=== PATIENT | male | born 1965 | race Caucasian/White ===

== ENCOUNTER 2018-07-05 08:34 | Inpatient (IN) ==
[2018-07-05] MEDS ORDERED: ONDANSETRON 4 MG/2 ML VIAL IV ONE (16:55)
[2018-07-05] MEDS ORDERED: PROPOFOL 200 MG/20 ML VIAL IV ONE (16:55)
[2018-07-05] MEDS ORDERED: MIDAZOLAM 5 MG/5 ML VIAL IV ONE (16:55)
[2018-07-05] MEDS ORDERED: fentaNYL 100 MCG/2 ML VIAL IV ONE (16:55)
[2018-07-05] MEDS ORDERED: TRANEXAMIC ACID 1,000 MG/10 ML VIAL IV ONE (16:55)
[2018-07-05] MEDS ORDERED: VERAPAMIL 2.5 MG/ML VIAL IV ONE (16:55)
[2018-07-05] MEDS ORDERED: VANCOMYCIN PER PHARMACY IV ONE (17:23)
[2018-07-05] MEDS ORDERED: VANCOMYCIN 1,500 MG in 0.9 % SODIUM CHLORIDE 500 ML IV SCH (17:30)
--- NOTE | 2018-07-05 17:57 | Brief Operative Note ---
Date of procedure: 07/05/18 Pre-op diagnosis: SEPTIC ARTHRITIS FIRST TOE ip JOINT RIGHT Post-op diagnosis: same Procedure: AMPUTATION , BONE BX Grafts/Implants: No Anesthesia: local Findings: SEVERE INFECTION Complications: none Surgeon: Seamus Small Estimated blood loss (cc): 100 Tourniquet Time (Minutes): 15 Specimens Removed/Pathology: other (SUPERFICIAL CULTURE; BIOPSY AND CULTURE OF BONE PROXIMAL TO AMPUTATION) Condition: stable Disposition: floor
[2018-07-05] MEDS ORDERED: BENZOCAINE/MENTHOL 1 LOZENGE PO PRN (17:58)
[2018-07-05] MEDS ORDERED: ONDANSETRON 4 MG/2 ML VIAL IV PRN (17:58)
[2018-07-05] MEDS ORDERED: MAGNESIUM HYDROXIDE 30 ML ORAL.SUSP PO PRN (17:58)
[2018-07-05] MEDS ORDERED: FLEETS ADULT ENEMA PR PRN (17:58)
[2018-07-05] MEDS ORDERED: BISACODYL 10 MG SUPP.RECT PR PRN (17:58)
[2018-07-05] MEDS ORDERED: LIDOCAINE 1% 20 ML VIAL SQ ONE (18:05)
[2018-07-05] MEDS ORDERED: BUPIVACAINE 0.5% 50 ML VIAL IJ ONE (18:06)
[2018-07-05] MEDS: DEXTROSE 5%-1/2NS 1,000 ML IV SCH (18:23)
[2018-07-05] MEDS: PIPERACILLIN SODIUM/TAZOBACTAM 3.375 GM in DEXTROSE 5% IN WATER 50 ML IV SCH (18:23)
--- NOTE | 2018-07-05 18:35 | History and Physical Report ---
DATE OF ADMISSION: 07/05/2018 HISTORY OF PRESENT ILLNESS: This is a 53-year-old who came from Dr. Sinha in [place] and who lives in [place]. He has had problems with his right big toe for at least a week. He has had swelling and pain and drainage from the toe. He has had a problem in this area previously. He does not have a history of diabetes, but does have a history of alcohol use, tobacco, peripheral neuropathy. He chews tobacco, but does not smoke. He has been worked up with an MRI of his foot recently, which shows a septic joint at the IP level of the right big toe. PAST MEDICAL HISTORY: Osteomyelitis, alcoholism. MEDICATIONS: Ciprofloxacin, hydrochlorothiazide, nifedipine, omeprazole, Percocet. SMOKING: He chews. Alcohol: History of alcohol use and abuse. SOCIAL HISTORY: He is not working. Recreational drugs. Has a history of methamphetamine use. PHYSICAL EXAMINATION: General: He is awake, alert, pleasant and in no distress. Lungs: Clear. Coronary: Regular rate and rhythm. No murmurs, rubs, or gallops. Foot exam shows a strong dorsalis pedis pulse. His big toe was swollen, especially through the IP joint to at least 2 times normal with a mild flexion deformity and ascending redness. Capillary refill is less than 2 seconds. His foot is a blotchy above the right toe. MR report of the right big toe is as noted above. I think the patient has a septic IP joint of the big toe. I have recommended amputation at the level of the infection and I would leave about 1 cm of the proximal phalanx to give him as much balance and length as possible. He knows the infection can get out of control and need a higher amputation. He will also have to be compliant in order to get a good result. Dr. Presley' briefly looked to the patient as well as we might need a wound care consult in 2 days, if he is showing necrosis at the site of surgery. We will proceed with emergent surgery in the next hour or 2. TJF:poonam Job ID: [id number] Doc ID: [id number] Seamus Sinha DO
[2018-07-05] MEDS ORDERED: LORazepam 2 MG/ML VIAL IV PRN (19:54)
[2018-07-05] MEDS ORDERED: cloNIDine HCL 0.1 MG TABLET PO PRN (19:54)
--- NOTE | 2018-07-05 20:18 | Internal Med History&Physical ---
Medical - H&P: HPI Patient information: Note initiated : 07/05/18 at 8:09 pm Service Date, if different from initiated Date: [] Patient: Vaughn Jolly a 53 y/o M admitted on 07/05/18 for Cellulitis, Osteomyelitis. Chief Complaint: [] History of present illness: Mr. Jolly is a 53 year old M with h/o etoh use, neuropathy, presents to the hospital from outside hospital with cellulitis and osteomyelitis of the right toe. The patient presented to the outside facility and 03 July. The patient's initial complaints were 5-day pain swelling and redness on the right toe. The patient notes that he does not remember how the episode started, does have poor sensation in his feet, thinks something may have bitten him. Pain and redness started progressively got worse over the last 5 days eventually presented to the hospital. He had erythema extending up to his mid leg. The patient was admitted at outside facility for 2 days treated with IV antibiotics vancomycin and Zosyn for cellulitis and sepsis. According to the discharge summary there it seems that the patient had an MRI done which showed that the patient had osteo-mellitus of the first toe. The patient also had blood cultures positive with staph aureus which is methicillin-resistant. The patient had an echocardiogram done at the outside facility results of which are still pending. The patient was transferred here for evaluation and amputation. Patient was seen by Dr. Small today amputation done successfully. Given that the patient has very high blood pressures, history of alcohol use medicine was consulted for further management. Infectious disease consulted for management of antibiotics. Patient has a history of hypertension, that has been uncontrolled. He has had admissions in the hospital in the past for hypertensive encephalopathy. The patient takes blood pressure pills I believe nifedipine lisinopril and hydrochlorothiazide, has not been compliant with same for the last few weeks. He drinks alcohol, sixpacks a day, 16 ounces. He denies any history of alcohol withdrawal when he does not drink, he denies any alcohol withdrawal seizures. The patient admits to chew tobacco, has a history of remote use of methamphetamine. Denies any other acute complaints. The patient admits to intermittent dizziness for not eating well, feels hungry and has some depression. All systems: reviewed and no additional remarkable complaints except as stated ( as per HPI rest neg) Medical - H&P: PMH Medical history: ALcoholism Neuropathy Osteomyelitis Diastoilc dysfunction, LVH Alcoholism Surgical history: left 4th toe amputation Pertinent family history: father and grand father has DM Social history: active tobacco user, chews tobacco h/o meth use active etoh use. Medical - H&P: Meds Home Medications Medication Instructions Recorded Confirmed Type Hydrochlorothiazide 20 mg PO DAILY 07/05/18 07/05/18 History Methadone [Dolophine] 5 mg PO BID 07/05/18 07/05/18 History NIFEdipine [Procardia] 50 mg PO DAILY 07/05/18 07/05/18 History Omeprazole [PriLOSEC] 20 mg PO DAILY 07/05/18 07/05/18 History Allergies Allergy/AdvReac Type Severity Reaction Status Date / Time Sulfa (Sulfonamide Allergy Intermediate Rash Verified 07/05/18 14:40 Antibiotics) acetaminophen AdvReac Intermediate Verified 07/05/18 15:43 ibuprofen AdvReac Intermediate Verified 07/05/18 15:43 Medical - H&P: Exam - Constitutional Vitals: Temp Pulse Resp BP Pulse Ox 98.1 F 69 16 163/101 96 07/05/18 18:05 07/05/18 18:05 07/05/18 18:05 07/05/18 18:05 07/05/18 18:31 Exam: GENERAL: The patient is a well-developed, well-nourished in no apparent distress. Is alert and oriented x3. VITAL SIGNS: Reviewed and as noted elsewhere. HEENT: Head is normocephalic and atraumatic. Extraocular muscles are intact. Pupils are equal, round, and reactive to light. Nares appeared normal. Mouth appears any without lesions. Mucous membranes are moist. NECK: Normal to inspection, Supple, No lymphadenopathy or thyromegaly. LUNGS: Air entry equal on both sides, no wheezing, crackles or rhonchi noted. No accessory muscles of respiration HEART: Regular rate and rhythm normal, S1 and S2 heard, no Gallop, S3 or Rub Noted, No Gross murmur heard. ABDOMEN: Soft, nontender, and nondistended. Positive bowel sounds. No hepatosplenomegaly was noted. EXTREMITIES: No cyanosis, clubbing, rash, lesions or edema. right foot covered in dressing post op. NEUROLOGIC: Cranial nerves II through XII are grossly intact. Motor and Sensory System Grossly Intact PSYCHIATRIC: Normal affect, Normal Mood. Appropriate Behavior. SKIN: No ulceration or wounds noted, No jaundice, No rash noted. Medical - H&P: Reslt - Labs Labs: wbc 6.7, hemoglobin 13, platelet 224, potassium 3.3, bicarb 23, creatinine 0.8 glucose 132, CRP 12. Blood cultures positive for MRSA. Echo pending at the outside facility. Sensitivity of the MRSA also pending Medical - H&P: A/P - Narrative A/P Narrative: A/P Ucontrolled HTN Osteomyelitis of right toe Cellulitis Gram positive Bactermia Alcoholism Neuropathy Plan Resume home bp medications, monitor for response, prn clonidine, pt educated regarding need to compliance. CIWA protocol, iv ativan prn, IV vanco and zosyn for now, await sensitivities, ID consult Regular diet Medical - H&P: Qual - Stroke Symptom Onset Unknown: No - VTE Deep Vein Thrombosis/Pulmonary Embolism Present on Admission: No
[2018-07-05] MEDS: LISINOPRIL 20 MG TABLET PO SCH (21:42)
[2018-07-05] MEDS: THIAMINE 100 MG TABLET PO SCH (21:42)
[2018-07-05] MEDS: oxyCODONE HCL 5 MG TABLET PO PRN (21:42)
[2018-07-05] MEDS: 0.9 % SODIUM CHLORIDE 10 ML SYRINGE IV SCH (22:52)
[2018-07-06] MEDS: PIPERACILLIN SODIUM/TAZOBACTAM 3.375 GM in DEXTROSE 5% IN WATER 50 ML IV SCH ×2 (00:52→05:24)
[2018-07-06 05:23] LABS: Basophils # (Auto) 0 K/mcL (0.0-0.3); Basophils % (Auto) 0.7 % (0.0-2.0); Eosinophils # (Auto) 0.4 K/mcL (0.0-0.7); Eosinophils % (Auto) 6.3 % (0.0-7.0); Granulocytes % (Auto) 56.6 % (38.0-78.0); Lymphocytes # (Auto) 1.9 K/mcL (1.5-4.8); Lymphocytes % (Auto) 27.1 % (15.5-49.0); Mean Cell Volume 86.3 fL (80.0-100.0); Mean Corpuscular Hemoglobin 29.3 pg (26.0-34.0); Monocytes # (Auto) 0.6 K/mcL (0.1-0.9); Monocytes % (Auto) 9.3 % (1.0-12.0); Platelet Count 238 K/mcL (140-440); RBC 4.26 M/mcL (4.50-5.90); Red Cell Distribution Width 14.4 % (11.5-14.5)
[2018-07-06] MEDS: DEXTROSE 5%-1/2NS 1,000 ML IV SCH (05:24)
[2018-07-06] MEDS: 0.9 % SODIUM CHLORIDE 10 ML SYRINGE IV SCH ×3 (05:26→21:36)
[2018-07-06 05:55] LABS: ALT/SGPT 17 U/l (0-40); Albumin 2.7 gm/dL (3.2-5.2); Albumin/Globulin Ratio 0.8 (1.0-2.3); Alkaline Phosphatase 72 U/L (39-117); Bilirubin,Direct < 0.2 mg/dL (0.0-0.3); Blood Urea Nitrogen 11 mg/dl (6-20); Gamma Glutamyl Transpeptidase 31 U/L (8-61); Uric Acid 3.2 mg/dL (2.5-8.0)
[2018-07-06] MEDS: oxyCODONE HCL 5 MG TABLET PO PRN ×4 (07:21→23:12)
[2018-07-06] MEDS: OMEPRAZOLE 20 MG CAPSULE PO SCH (07:21)
--- NOTE | 2018-07-06 07:32 | Operative Note ---
DATE OF OPERATION: 07/05/2018 PREOPERATIVE DIAGNOSIS: Septic INTRATHECAL PUMP joint of the right foot. POSTOPERATIVE DIAGNOSIS: Septic IP joint of the right foot. OPERATION: Amputation to the proximal phalanx of the right big toe. SURGEON: Seamus Small MD ANESTHESIA: Sedation with ankle block by Sharath Michelle CRNA. TOURNIQUET TIME: 15 minutes, ankle level Esmarch tourniquet. ESTIMATED BLOOD LOSS: 100 mL SUMMARY OF PROCEDURE: General anesthesia was attained. An ankle block was placed with 30 mL of Marcaine and 10 mL of 1% lidocaine. Neither had epinephrine. The foot was prepped and draped. An ankle level Esmarch tourniquet was put up. A fishmouth incision was made. This was taken down just proximal to the infection to the diaphysis of the proximal phalanx. The position for the amputation was checked on the mini C-arm and the amputation accomplished removing the infected toe and IP joints. The area was irrigated. I then took a bone biopsy from the remaining bone as well as a bone culture. I instructed Jonatan, the circulating nurse to send the culture and label it as proximal phalanx and to send a biopsy and label as proximal phalanx. Prior to doing this, we had also taken a soft tissue swab while entering the abscess. The tourniquet was let down. The digital arteries were located and coagulated with the Bovie. The remaining significant bleeders were bovied as well. I irrigated the area with a liter of IrriSept and then 10 mL of tranexamic acid which was 1 gram. The wound was closed in layers using 2-0 Monocryl for the subcutaneous tissue and simple sutures of 3-0 nylon on the skin. A sterile compressive dressing was applied. The sponge and needle count was correct. The patient tolerated the procedure and was taken to the recovery room in stable condition. TJF:amberly Job ID: [id number] Doc ID: [id number] Seamus Small MD
--- NOTE | 2018-07-06 07:51 | XRay Report ---
HISTORY: Postop after amputation of the first toe FINDINGS: The base of the proximal phalanx of the first toe remains. The remainder of the toe has been resected. There is soft tissue swelling over the stump of the residual proximal phalanx. The Remainder of the toes and metatarsals are normal. There are small spurs along the superior border of the navicular and plantar surface of the calcaneus. IMPRESSION: Normal postoperative changes following recent amputation of the first toe Interpreted and Authenticated by: José Antonio Blunt 07/06/18
[2018-07-06] MEDS ORDERED: HYDROCHLOROTHIAZIDE 25 MG TABLET PO SCH (09:00)
[2018-07-06] MEDS ORDERED: NIFEdipine 10 MG CAPSULE PO SCH (09:00)
[2018-07-06] MEDS: THIAMINE 100 MG TABLET PO SCH (09:07)
[2018-07-06] MEDS: NIFEdipine 30 MG TAB.XL.24H PO SCH (09:07)
[2018-07-06] MEDS: MULTIVIT,THER IRON,CA,FA & MIN 1 TABLET PO SCH (09:08)
[2018-07-06] MEDS: HYDROCHLOROTHIAZIDE 25 MG TABLET PO SCH (09:08)
[2018-07-06] MEDS: DOCUSATE SODIUM 100 MG CAPSULE PO SCH ×2 (09:08→21:36)
[2018-07-06] MEDS: FOLIC ACID 1 MG TABLET PO SCH (09:08)
[2018-07-06] MEDS: LISINOPRIL 20 MG TABLET PO SCH (09:08)
--- NOTE | 2018-07-06 09:22 | Infectious Disease Consult ---
History of Present Illness Patient information: Note initiated : 07/06/18 at 9:01 am Service Date, if different from initiated Date: [] Patient: Vaughn Jolly 53 y/o M admitted on 07/05/18 for Cellulitis, Osteomyelitis. Chief Complaint: [] Consult date: 07/05/18 (Late evening) Requesting Physician: Seamus Small Reason for Consult: MRSA bacteremia and right toe infection Chief complaint: My foot hurts History of present illness: 53-year-old man with past medical history pertinent for: MRSA infection of the left foot, status post fourth toe amputation in 11/2017 Alcohol use Neuropathy involving both feet [? 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 Around last Monday [06/30/2018] , patient noticed swelling and redness of his right first toe. Patient reports that it started without any trauma and was accompanied with fever and chills and overall malaise. Patient took an oral penicillin [given to him by his friend who had bought it in [place]] for next 3 days without any improvement. Patient's overall condition worsened with drainage from the foot and he reported to the hospital in [place], [place] where he was admitted for few days before being transferred to [facility] on 04 July. Patient had blood cultures, MRI of the first toe done there. Blood cultures grew MRSA although the exact number was not available in records. A transthoracic echocardiogram was also done the results of which were pending. MRI of the right first toe showed osteomyelitis and septic joint at the interphalangeal level of the first toe. Patient was started on IV vancomycin and IV Zosyn and was transferred. The Vanco level was subtherapeutic and his dose was increased Patient was afebrile at admission although his diastolic blood pressure has been running high. He underwent amputation of the bone distal to proximal phalanx with operative cultures sent from healthy bone. He has been on IV Vanco and IV Zosyn. At the time of visit today, he denies any fever, chills, nausea, vomiting, diarrhea. Endorses pain in his right toe. He does not have a PICC line placed. 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 Smokes and chews tobacco Drinks about 6 packs of beer a day History of IV meth use Medications and Allergies Home Medications Medication Instructions Recorded Confirmed Type Hydrochlorothiazide 20 mg PO DAILY 07/05/18 07/05/18 History Methadone [Dolophine] 5 mg PO BID 07/05/18 07/05/18 History NIFEdipine [Procardia] 50 mg PO DAILY 07/05/18 07/05/18 History Omeprazole [PriLOSEC] 20 mg PO DAILY 07/05/18 07/05/18 History Allergies Allergy/AdvReac Type Severity Reaction Status Date / Time Sulfa (Sulfonamide Allergy Intermediate Rash Verified 07/05/18 14:40 Antibiotics) acetaminophen AdvReac Intermediate Verified 07/05/18 15:43 ibuprofen AdvReac Intermediate Verified 07/05/18 15:43 Physical Examination Vital signs: Temp Pulse Resp BP Pulse Ox 36.6 C 70 16 144/108 93 07/06/18 07:32 07/06/18 04:00 07/06/18 07:32 07/06/18 07:32 07/06/18 07:32 General appearance: no acute distress, alert Eyes pulmonary: nonicteric ENT: oropharynx moist Auscultation: bilateral: clear Cardiovascular: regular rate and rhythm, other (No murmur auscultatable) Gastrointestinal: normoactive bowel sounds Extremities: other (Has mild edema in both lower extremities. Also has varicose veins with some chronic venous changes in the skin including hyperpigmentation. The right foot surgical wound is covered with primary dressing, no drainage seen on the dressing) Results - Laboratory Findings CBC and BMP: 07/06/18 04:05 07/06/18 04:05 Abnormal lab findings: Abnormal Labs 07/06/18 07/06/18 04:05 04:05 RBC 4.26 L Hgb 12.5 L Hct 36.8 L Calcium 8.5 L Phosphorus 4.7 H Albumin 2.7 L Albumin/Globulin Ratio 0.8 L Assessment and Plan - Narrative A/P Narrative: Assessment: 1. MRSA bacteremia: Vanco STEVE of 2 which increases the risk for failure for severe MRSA infection [bacteremia, endocarditis, osteomyelitis] -TTE report pending -Blood cultures from 07/04+ for MRSA 2. Right first toe septic arthritis and osteomyelitis, status post amputation of distal phalanx and debridement: Postoperative day 1 3. No sepsis Recommendations: Stop IV vancomycin and IV Zosyn Start IV daptomycin at 8 mg/kg [= 8 x 117 = 936 mg] ~ 950 mg q 24 hrs, given Vanco STEVE of 2 Send repeat blood cultures to document clearance of bacteremia Await final report of TTE to rule out any endocarditis Await bone biopsy culture results [per micro there is preliminary growth, possible identification available tomorrow] The PICC line can be placed once blood cultures are negative for 48-72 hours, for long-term antibiotics Given this is second episode of MRSA infection, will recommend decolonization with 2% intranasal mupirocin twice daily for 5 days and whole body chlorhexidine 2% wipes [to be applied below the neck] once daily for 5 days We will follow Mark Blancas MD Infectious disease
[2018-07-06] MEDS: DAPTOmycin 500 MG VIAL IV SCH (11:50)
--- NOTE | 2018-07-06 12:07 | Internal Med Progress Note ---
Medical - PN: Subj Patient information: Note initiated : 07/06/18 at 12:05 pm Service Date, if different from initiated Date: [] Patient: Vaughn Jolly a 53 y/o M admitted on 07/05/18 for Cellulitis, Osteomyelitis. Chief Complaint: [] Interval history: Mr. Jolly is a 53 year old M with h/o etoh use, neuropathy, presents to the hospital from outside hospital with cellulitis and osteomyelitis of the right toe. The patient presented to the outside facility and 03 July. The patient's initial complaints were 5-day pain swelling and redness on the right toe. The patient notes that he does not remember how the episode started, does have poor sensation in his feet, thinks something may have bitten him. Pain and redness started progressively got worse over the last 5 days eventually presented to the hospital. He had erythema extending up to his mid leg. The patient was admitted at outside facility for 2 days treated with IV antibiotics vancomycin and Zosyn for cellulitis and sepsis. According to the discharge summary there it seems that the patient had an MRI done which showed that the patient had osteo-mellitus of the first toe. The patient also had blood cultures positive with staph aureus which is methicillin-resistant. The patient had an echocardiogram done at the outside facility results of which are still pending. The patient was transferred here for evaluation and amputation. Patient was seen by Dr. Small today amputation done successfully. Given that the patient has very high blood pressures, history of alcohol use medicine was consulted for further management. Infectious disease consulted for management of antibiotics. Patient has a history of hypertension, that has been uncontrolled. He has had admissions in the hospital in the past for hypertensive encephalopathy. The patient takes blood pressure pills I believe nifedipine lisinopril and hydrochlorothiazide, has not been compliant with same for the last few weeks. He drinks alcohol, sixpacks a day, 16 ounces. He denies any history of alcohol withdrawal when he does not drink, he denies any alcohol withdrawal seizures. The patient admits to chew tobacco, has a history of remote use of methamphetamine. Denies any other acute complaints. The patient admits to intermittent dizziness for not eating well, feels hungry and has some depression. 07/06 patient seen examined, no acute overnight issues no w/o etoh withdrawal on thiamine tolerating po diet well bp was improved with resumption of oral meds Will monitor closely Repeat cultures, appreciate ID input. Pertinent ROS: Denies headache, dizziness Denies chest pain, palpitations Denies cough or shortness of breath Denies abdominal pain, nausea or vomiting. - Constitutional Vitals: Vital Signs Temp Pulse Resp BP Pulse Ox 97 F 70 20 146/88 94 07/06/18 11:59 07/06/18 04:00 07/06/18 11:59 07/06/18 11:59 07/06/18 12:00 Period Temp Pulse Resp BP Sys/Downing Pulse Ox Last 24 Hr 97 F-98.9 F 67-86 12-22 132-184/83-108 92-98 Intake and Output 07/05/18 07/06/18 07/06/18 21:59 05:59 13:59 Intake Total 50 / 50 1436 / 1436 550 / 550 Output Total 900 / 900 Balance -850 / -850 1436 / 1436 550 / 550 Weight 259 lb 259 lb Patient Weight 07/07/18 05:59 Weight 259 lb Intake & Output: Intake & Output 07/05/18 07/06/18 07/06/18 21:59 05:59 13:59 Intake Total 50 / 50 1436 / 1436 550 / 550 Output Total 900 / 900 Balance -850 / -850 1436 / 1436 550 / 550 Weight 259 lb 259 lb Intake: IV 50 / 50 876 / 876 550 / 550 Dextrose 5%-1/2Ns IV Solution 1 826 / 826 ,000 ml @ 75 mls/hr IV .[id number] AVI Rx#:[id number] Zosyn 3.375 gm In Dextrose 5% 50 / 50 50 / 50 50 / 50 in Water 50 ml @ 100 mls/hr IV Q6H AVI Rx#:[id number] Oral 560 / 560 Output: Void Amount 900 / 900 Other: Meal Nourishment/Supplement Percent of Meal Consumed 100% Feeding Ability Independent # Voids 1 # Bowel Movements 1 Exam: Constitutional; Afebrile, cooperative, alert, not in distress. Respiratory system: Air Entry equal on both sides, No crackles or wheezing, no rhonchi. CVS- Rate rhythm regular, S1,S2 heard, no gallop, no rub. Abdomen- Soft nontender abdomen, no organomegaly, no tenderness, no guarding or rigidity, ENGINE ASSEMBLER- AOOx3, moving all extremities, no gross focal deficit noted. Medical - PN: Obj Da - Labs CBC & Chem 7: 07/06/18 04:05 07/06/18 04:05 Labs: Abnormal Lab Results 07/06/18 07/06/18 04:05 04:05 RBC 4.26 L Hgb 12.5 L Hct 36.8 L Calcium 8.5 L Phosphorus 4.7 H Albumin 2.7 L Albumin/Globulin Ratio 0.8 L Meds: Medications Bisacodyl (Dulcolax) 10 mg WV Q2-3DAYS PRN PRN Reason: Constipation Clonidine HCl (Catapres) 0.1 mg PO Q4HP PRN PRN Reason: Hypertension Daptomycin (Cubicin) 940 mg 8 mg/kg (940 mg) IV Q24H [facility] Last Admin: 07/06/18 11:50 Dose: 940 mg Docusate Sodium (Colace) 100 mg PO BID [facility] Last Admin: 07/06/18 09:08 Dose: 100 mg Folic Acid (Folic Acid) 1 mg PO DAILY [facility] Last Admin: 07/06/18 09:08 Dose: 1 mg Hydrochlorothiazide (Oretic) 25 mg PO DAILY [facility] Last Admin: 07/06/18 09:08 Dose: 25 mg Iron Carb/Multivit/Miller/Folic Acid (Multivitamin W/Minerals) 1 tab PO DAILY [facility] Last Admin: 07/06/18 09:08 Dose: 1 tab Lisinopril (Zestril) 20 mg PO DAILY [facility] Last Admin: 07/06/18 09:08 Dose: 20 mg Lorazepam (Ativan) 0 mg IV Q4HP PRN; Protocol PRN Reason: Alcohol Withdrawal Magnesium Hydroxide (Milk Of Magnesia) 30 ml PO BIDP PRN PRN Reason: Constipation Morphine Sulfate (Morphine) 0 mg IV Q1HP PRN PRN Reason: PAIN LEVEL > 6 Mupirocin (Bactroban 2% Nasal Oint) 1 gm ROSS BID [facility] Nifedipine (Procardia Xl) 60 mg PO DAILY [facility] Last Admin: 07/06/18 09:07 Dose: 60 mg Omeprazole (Prilosec) 20 mg PO ACB [facility] Last Admin: 07/06/18 07:21 Dose: 20 mg Ondansetron HCl (Zofran) 4 mg IV Q4HP PRN PRN Reason: Nausea And Vomiting Oxycodone HCl (Roxicodone) 0 mg PO Q4HP PRN PRN Reason: PAIN LEVEL 3-6 Last Admin: 07/06/18 07:21 Dose: 10 mg Polyethylene Glycol (Miralax) 17 gm PO DAILYP PRN PRN Reason: Constipation Sodium Biphosphate/Sodium Phosphate (Fleets Adult) 1 dose WV Q3-4DAYS PRN PRN Reason: Constipation Sodium Chloride (Saline Flush) 10 ml IV Q8 [facility] Last Admin: 07/06/18 05:26 Dose: 10 ml Thiamine HCl (Vitamin B1) 100 mg PO QDAY [facility] Last Admin: 07/06/18 09:07 Dose: 100 mg Throat Lozenges (Cepacol) 1 lozenge PO PRN PRN PRN Reason: Sore Throat Last Admin: 07/05/18 23:08 Dose: 1 lozenge Medical - PN: A/P - Time Spent With Patient Total time spent is greater than 50% in coordination of care (as documented) at patient's floor/unit and/or counseling patient: - Narrative A/P Narrative: A/P Ucontrolled HTN Osteomyelitis of right toe Cellulitis Gram positive Bactermia Alcoholism Neuropathy Plan D/C IVF Resumed home bp meds changed abx to daptomycin as per ID await echo continue ciwa, mv, thiaine, prn ativan if needed blood culture sent, if neg will get PICC placed. Regular diet Medical - PN: Qual - Stroke Symptom Onset Unknown: No - VTE Deep Vein Thrombosis/Pulmonary Embolism Present on Admission: No
--- NOTE | 2018-07-06 14:25 | Orthopedic Progress Note ---
Subjective Patient information: Note initiated : 07/06/18 at 2:22 pm Service Date, if different from initiated Date: [] Patient: Vaughn Jolly 53 y/o M admitted on 07/05/18 for Cellulitis, Osteomyelitis. Chief Complaint: [] Principal diagnosis: r foot abscess Interval history: surgery yesterday Objective Vital signs: Vital Signs Temp Pulse Pulse Resp BP Pulse Ox 07/06/18 12:00 94 07/06/18 11:59 97 F 20 146/88 94 07/06/18 08:00 93 07/06/18 07:32 97.9 F 16 144/108 93 07/06/18 04:00 97.6 F 70 18 157/95 96 07/06/18 00:00 98.2 F 86 22 184/92 98 07/05/18 22:18 77 142/85 07/05/18 22:03 79 153/100 92 07/05/18 21:48 77 132/83 95 07/05/18 21:33 77 135/83 92 07/05/18 21:18 78 149/99 95 07/05/18 20:17 71 96 07/05/18 20:02 67 134/88 97 07/05/18 18:31 96 07/05/18 18:17 68 96 07/05/18 18:05 98.1 F 69 16 163/101 96 07/05/18 18:00 70 14 169/105 94 07/05/18 17:55 169/105 07/05/18 17:50 98.1 F 69 12 169/105 94 07/05/18 16:00 98.9 F 69 17 152/91 96 Intake and Output 07/06/18 07/06/18 07/06/18 05:59 13:59 21:59 Intake Total 1436 / 1436 790 / 790 Balance 1436 / 1436 790 / 790 Intake: IV 876 / 876 550 / 550 Dextrose 5%-1/2Ns IV Solution 1 826 / 826 ,000 ml @ 75 mls/hr IV .[id number] [facility] Rx#:[id number] Zosyn 3.375 gm In Dextrose 5% 50 / 50 50 / 50 in Water 50 ml @ 100 mls/hr IV Q6H [facility] Rx#:[id number] Oral 560 / 560 240 / 240 Other: Meal Nourishment/Supplement Breakfast Percent of Meal Consumed 100% 75% Feeding Ability Independent Independent Weight 259 lb Patient Weight 07/07/18 05:59 Weight 259 lb Intake & Output: Intake & Output 07/06/18 07/06/18 07/06/18 05:59 13:59 21:59 Intake Total 1436 / 1436 790 / 790 Balance 1436 / 1436 790 / 790 Weight 259 lb Intake: IV 876 / 876 550 / 550 Dextrose 5%-1/2Ns IV Solution 1 826 / 826 ,000 ml @ 75 mls/hr IV .[id number] [facility] Rx#:[id number] Zosyn 3.375 gm In Dextrose 5% 50 / 50 50 / 50 in Water 50 ml @ 100 mls/hr IV Q6H [facility] Rx#:[id number] Oral 560 / 560 240 / 240 Other: Meal Nourishment/Supplement Breakfast Percent of Meal Consumed 100% 75% Feeding Ability Independent Independent Dressing: Yes clean, Yes dry Weight bearing status: full Neurological exam IM: Yes alert, Yes oriented X3 Extremities exam IM: Yes normal inspection - Labs CBC & BMP: 07/06/18 04:05 07/06/18 04:05 Labs: 07/06/18 04:05 Hgb 12.5 L Hct 36.8 L Assessment and Plan (1) Abscess of foot Status: Acute - Narrative A/P Narrative: POD 1. Currently on daptomycin Await superficial culture results and cultures of remaining bone as well as biopsy result of remaining bone Dressing change and culture check tomorrow.
[2018-07-06] MEDS ORDERED: MUPIROCIN 2% NASAL OINT 1 GM OINT.TOP NAS SCH (21:00)
[2018-07-07] MEDS: 0.9 % SODIUM CHLORIDE 10 ML SYRINGE IV SCH ×3 (06:00→20:23)
[2018-07-07 06:39] LABS: Basophils # (Auto) 0 K/mcL (0.0-0.3); Basophils % (Auto) 0.6 % (0.0-2.0); Eosinophils # (Auto) 0.5 K/mcL (0.0-0.7); Eosinophils % (Auto) 6.9 % (0.0-7.0); Granulocytes % (Auto) 47.7 % (38.0-78.0); Lymphocytes # (Auto) 2.5 K/mcL (1.5-4.8); Lymphocytes % (Auto) 35.6 % (15.5-49.0); Mean Cell Volume 85.8 fL (80.0-100.0); Mean Corpuscular Hemoglobin 29.1 pg (26.0-34.0); Monocytes # (Auto) 0.6 K/mcL (0.1-0.9); Monocytes % (Auto) 9.2 % (1.0-12.0); Platelet Count 283 K/mcL (140-440); RBC 4.41 M/mcL (4.50-5.90)
[2018-07-07 07:17] LABS: ALT/SGPT 22 U/l (0-40); Albumin 2.9 gm/dL (3.2-5.2); Albumin/Globulin Ratio 0.8 (1.0-2.3); Alkaline Phosphatase 57 U/L (39-117); Bilirubin,Direct < 0.2 mg/dL (0.0-0.3); Blood Urea Nitrogen 14 mg/dl (6-20); Gamma Glutamyl Transpeptidase 30 U/L (8-61); Uric Acid 4.2 mg/dL (2.5-8.0)
--- NOTE | 2018-07-07 09:35 | Orthopedic Progress Note ---
Subjective Patient information: Note initiated : 07/07/18 at 9:33 am Service Date, if different from initiated Date: [] Patient: Vaughn Jolly 53 y/o M admitted on 07/05/18 for Cellulitis, Osteomyelitis. Chief Complaint: [] Principal diagnosis: r foot abscess Interval history: Patient is doing well after surgery and has no complaints. Objective Vital signs: Vital Signs Temp Pulse Resp BP Pulse Ox 07/07/18 07:05 97.3 F 83 16 147/97 93 07/07/18 04:00 97.8 F 83 20 142/80 91 07/07/18 00:00 97.7 F 81 18 132/74 92 07/06/18 20:00 97.7 F 88 16 144/89 94 07/06/18 16:00 94 07/06/18 12:00 94 07/06/18 11:59 97 F 20 146/88 94 Intake and Output 07/06/18 07/07/18 07/07/18 21:59 05:59 13:59 Intake Total 240 / 240 1260 / 1260 Balance 240 / 240 1260 / 1260 Intake: Oral 240 / 240 1260 / 1260 Other: Meal Dinner Nourishment/Supplement Percent of Meal Consumed 100% 100% Intake & Output: Intake & Output 07/06/18 07/07/18 07/07/18 21:59 05:59 13:59 Intake Total 240 / 240 1260 / 1260 Balance 240 / 240 1260 / 1260 Intake: Oral 240 / 240 1260 / 1260 Other: Meal Dinner Nourishment/Supplement Percent of Meal Consumed 100% 100% Incision clean and dry: Yes Dressing: Yes clean, Yes dry, Yes intact Weight bearing status: full Neurological exam IM: Yes neurovascular intact Extremities exam IM: No calf tenderness, Yes Foot pink and warm - Labs CBC & BMP: 07/07/18 04:05 07/07/18 04:05 Labs: 07/07/18 07/06/18 04:05 04:05 Hgb 12.9 L 12.5 L Hct 37.9 L 36.8 L Assessment and Plan (1) Acquired absence of great toe Patient may be WBAT on foot with post op shoe. Dressing changes once daily starting in 2 days with gauze and small amount of antibiotic ointment on incision Follow up appointment with Hardy Baker PA-C on 07-13-18. Discharge per hospitalist with outpatient antibiotics once blood cultures result. Status: Acute
[2018-07-07] MEDS: NIFEdipine 30 MG TAB.XL.24H PO SCH (10:18)
[2018-07-07] MEDS: MULTIVIT,THER IRON,CA,FA & MIN 1 TABLET PO SCH (10:19)
[2018-07-07] MEDS: THIAMINE 100 MG TABLET PO SCH (10:19)
[2018-07-07] MEDS: oxyCODONE HCL 5 MG TABLET PO PRN ×3 (10:19→20:22)
[2018-07-07] MEDS: HYDROCHLOROTHIAZIDE 25 MG TABLET PO SCH (10:19)
[2018-07-07] MEDS: OMEPRAZOLE 20 MG CAPSULE PO SCH (10:19)
[2018-07-07] MEDS: LISINOPRIL 20 MG TABLET PO SCH (10:19)
[2018-07-07] MEDS: FOLIC ACID 1 MG TABLET PO SCH (10:20)
[2018-07-07] MEDS: DOCUSATE SODIUM 100 MG CAPSULE PO SCH ×2 (10:20→20:22)
--- NOTE | 2018-07-07 10:36 | Internal Med Progress Note ---
Medical - PN: Subj Patient information: Note initiated : 07/07/18 at 10:33 am Service Date, if different from initiated Date: [] Patient: Vaughn Jolly a 53 y/o M admitted on 07/05/18 for Cellulitis, Osteomyelitis. Chief Complaint: [] Interval history: Mr. Jolly is a 53 year old M with h/o etoh use, neuropathy, presents to the hospital from outside hospital with cellulitis and osteomyelitis of the right toe. The patient presented to the outside facility and 03 July. The patient's initial complaints were 5-day pain swelling and redness on the right toe. The patient notes that he does not remember how the episode started, does have poor sensation in his feet, thinks something may have bitten him. Pain and redness started progressively got worse over the last 5 days eventually presented to the hospital. He had erythema extending up to his mid leg. The patient was admitted at outside facility for 2 days treated with IV antibiotics vancomycin and Zosyn for cellulitis and sepsis. According to the discharge summary there it seems that the patient had an MRI done which showed that the patient had osteo-mellitus of the first toe. The patient also had blood cultures positive with staph aureus which is methicillin-resistant. The patient had an echocardiogram done at the outside facility results of which are still pending. The patient was transferred here for evaluation and amputation. Patient was seen by Dr. Small today amputation done successfully. Given that the patient has very high blood pressures, history of alcohol use medicine was consulted for further management. Infectious disease consulted for management of antibiotics. Patient has a history of hypertension, that has been uncontrolled. He has had admissions in the hospital in the past for hypertensive encephalopathy. The patient takes blood pressure pills I believe nifedipine lisinopril and hydrochlorothiazide, has not been compliant with same for the last few weeks. He drinks alcohol, sixpacks a day, 16 ounces. He denies any history of alcohol withdrawal when he does not drink, he denies any alcohol withdrawal seizures. The patient admits to chew tobacco, has a history of remote use of methamphetamine. Denies any other acute complaints. The patient admits to intermittent dizziness for not eating well, feels hungry and has some depression. 07/06 patient seen examined, no acute overnight issues no w/o etoh withdrawal on thiamine tolerating po diet well bp was improved with resumption of oral meds Will monitor closely Repeat cultures, appreciate ID input. 07/07 Pt seen examined no acute issues, no etoh withdrawal wanting something to sleep at night, will start on trazodone culture neg so far continue daptomycin for now, anticipate 4 weeks of treatment picc to be plced once culture neg 48-72 hrs as per ID Pertinent ROS: Denies headache, dizziness Denies chest pain, palpitations Denies cough or shortness of breath Denies abdominal pain, nausea or vomiting. - Constitutional Vitals: Vital Signs Temp Pulse Resp BP Pulse Ox 97.3 F 83 16 147/97 93 07/07/18 07:05 07/07/18 07:05 07/07/18 07:05 07/07/18 07:05 07/07/18 07:05 Period Temp Pulse Resp BP Sys/Downing Pulse Ox Last 24 Hr 97 F-97.8 F 81-88 16-20 132-147/74-97 91-94 Intake and Output 07/06/18 07/07/18 07/07/18 21:59 05:59 13:59 Intake Total 240 / 240 1260 / 1260 Balance 240 / 240 1260 / 1260 Intake & Output: Intake & Output 07/06/18 07/07/18 07/07/18 21:59 05:59 13:59 Intake Total 240 / 240 1260 / 1260 Balance 240 / 240 1260 / 1260 Intake: Oral 240 / 240 1260 / 1260 Other: Meal Dinner Nourishment/Supplement Percent of Meal Consumed 100% 100% Exam: Constitutional; Afebrile, cooperative, alert, not in distress. Eyes- No icterus, , No periorbital swelling Ears- Ext ear normal, hearing normal to conversation. Neck- Midline trachea, supple Respiratory system: Air Entry equal on both sides, No crackles or wheezing, no rhonchi. CVS- Rate rhythm regular, S1,S2 heard, no gallop, no rub. Abdomen- Soft nontender abdomen, no organomegaly, no tenderness, no guarding or rigidity, [employer]- AOOx3, moving all extremities, no gross focal deficit noted. Medical - PN: Obj Da - Labs CBC & Chem 7: 07/07/18 04:05 07/07/18 04:05 Labs: Abnormal Lab Results 07/07/18 07/07/1818 04:05 04:05 04:05 RBC 4.41 L Hgb 12.9 L Hct 37.9 L Calcium 8.5 L Phosphorus 4.7 H Lactate Dehydrogenase 286 H Albumin 2.9 L 2.7 L Globulin 3.8 H Albumin/Globulin Ratio 0.8 L 0.8 L 07/06/18 04:05 RBC 4.26 L Hgb 12.5 L Hct 36.8 L Calcium Phosphorus Lactate Dehydrogenase Albumin Globulin Albumin/Globulin Ratio Meds: Medications Bisacodyl (Dulcolax) 10 mg MN Q2-3DAYS PRN PRN Reason: Constipation Clonidine HCl (Catapres) 0.1 mg PO Q4HP PRN PRN Reason: Hypertension Daptomycin (Cubicin) 940 mg 8 mg/kg (940 mg) IV Q24H [facility] Last Admin: 07/06/18 11:50 Dose: 940 mg Docusate Sodium (Colace) 100 mg PO BID [facility] Last Admin: 07/07/18 10:20 Dose: 100 mg Folic Acid (Folic Acid) 1 mg PO DAILY [facility] Last Admin: 07/07/18 10:20 Dose: 1 mg Hydrochlorothiazide (Oretic) 25 mg PO DAILY [facility] Last Admin: 07/07/18 10:19 Dose: 25 mg Iron Carb/Multivit/[place]/Folic Acid (Multivitamin W/Minerals) 1 tab PO DAILY [facility] Last Admin: 07/07/18 10:19 Dose: 1 tab Lisinopril (Zestril) 20 mg PO DAILY [facility] Last Admin: 07/07/18 10:19 Dose: 20 mg Lorazepam (Ativan) 0 mg IV Q4HP PRN; Protocol PRN Reason: Alcohol Withdrawal Magnesium Hydroxide (Milk Of Magnesia) 30 ml PO BIDP PRN PRN Reason: Constipation Morphine Sulfate (Morphine) 0 mg IV Q1HP PRN PRN Reason: PAIN LEVEL > 6 Nifedipine (Procardia Xl) 60 mg PO DAILY [facility] Last Admin: 07/07/18 10:18 Dose: 60 mg Omeprazole (Prilosec) 20 mg PO ACB [facility] Last Admin: 07/07/18 10:19 Dose: 20 mg Ondansetron HCl (Zofran) 4 mg IV Q4HP PRN PRN Reason: Nausea And Vomiting Oxycodone HCl (Roxicodone) 0 mg PO Q4HP PRN PRN Reason: PAIN LEVEL 3-6 Last Admin: 07/07/18 10:19 Dose: 10 mg Polyethylene Glycol (Miralax) 17 gm PO DAILYP PRN PRN Reason: Constipation Sodium Biphosphate/Sodium Phosphate (Fleets Adult) 1 dose MN Q3-4DAYS PRN PRN Reason: Constipation Sodium Chloride (Saline Flush) 10 ml IV Q8 [facility] Last Admin: 07/07/18 06:00 Dose: Not Given Thiamine HCl (Vitamin B1) 100 mg PO QDAY [facility] Last Admin: 07/07/18 10:19 Dose: 100 mg Throat Lozenges (Cepacol) 1 lozenge PO PRN PRN PRN Reason: Sore Throat Last Admin: 07/05/18 23:08 Dose: 1 lozenge Medical - PN: A/P - Time Spent With Patient Total time spent is greater than 50% in coordination of care (as documented) at patient's floor/unit and/or counseling patient: - Narrative A/P Narrative: A/P Ucontrolled HTN Osteomyelitis of right toe/ s/p amputation. Cellulitis- resolving. Gram positive Bactermia/ MRSA Alcoholism Neuropathy Plan Resumed home bp meds, bp much better changed abx to daptomycin as per ID await echo (done at the outside facility will need to call for results) d/c ciwa, continue mv, thiamine and folic acid blood culture sent neg growth so far , if neg will get PICC placed. Regular diet DVT hep sq Full code Medical - PN: Qual - Stroke Symptom Onset Unknown: No - VTE Deep Vein Thrombosis/Pulmonary Embolism Present on Admission: No
[2018-07-07] MEDS: DAPTOmycin 500 MG VIAL IV SCH (13:11)
[2018-07-07] MEDS: SENNOSIDES/DOCUSATE SODIUM 1 TAB TABLET PO SCH ×2 (13:11→20:22)
[2018-07-07] MEDS: POLYETHYLENE GLYCOL 3350 17 GM PACKET PO PRN (18:42)
[2018-07-07] MEDS: HEPARIN 5,000 UNIT/ML VIAL SQ SCH (20:23)
[2018-07-07] MEDS: traZODone HCL 50 MG TABLET PO PRN (20:28)
[2018-07-08] MEDS: 0.9 % SODIUM CHLORIDE 10 ML SYRINGE IV SCH ×3 (04:03→20:56)
[2018-07-08 05:37] LABS: Basophils # (Auto) 0.1 K/mcL (0.0-0.3); Eosinophils # (Auto) 0.4 K/mcL (0.0-0.7); Eosinophils % (Auto) 6.4 % (0.0-7.0); Granulocytes % (Auto) 48.4 % (38.0-78.0); Lymphocytes # (Auto) 2.4 K/mcL (1.5-4.8); Lymphocytes % (Auto) 36.1 % (15.5-49.0); Mean Cell Volume 85.6 fL (80.0-100.0); Mean Corpuscular HGB Conc 33.5 g/dL (31.0-36.0); Mean Corpuscular Hemoglobin 28.7 pg (26.0-34.0); Monocytes # (Auto) 0.5 K/mcL (0.1-0.9); Monocytes % (Auto) 8.1 % (1.0-12.0); Platelet Count 315 K/mcL (140-440); RBC 4.75 M/mcL (4.50-5.90)
[2018-07-08 05:45] LABS: ALT/SGPT 25 U/l (0-40); Albumin 3.3 gm/dL (3.2-5.2); Albumin/Globulin Ratio 0.8 (1.0-2.3); Alkaline Phosphatase 60 U/L (39-117); Bilirubin,Direct < 0.2 mg/dL (0.0-0.3); Blood Urea Nitrogen 21 mg/dl (6-20); Gamma Glutamyl Transpeptidase 38 U/L (8-61); Uric Acid 5.7 mg/dL (2.5-8.0)
[2018-07-08] MEDS: DAPTOmycin 500 MG VIAL IV SCH (10:00)
[2018-07-08] MEDS: POLYETHYLENE GLYCOL 3350 17 GM PACKET PO PRN (10:32)
[2018-07-08] MEDS: SENNOSIDES/DOCUSATE SODIUM 1 TAB TABLET PO SCH ×2 (10:34→20:56)
[2018-07-08] MEDS: THIAMINE 100 MG TABLET PO SCH (10:34)
[2018-07-08] MEDS: HEPARIN 5,000 UNIT/ML VIAL SQ SCH ×2 (10:34→20:55)
[2018-07-08] MEDS: OMEPRAZOLE 20 MG CAPSULE PO SCH (10:34)
[2018-07-08] MEDS: HYDROCHLOROTHIAZIDE 25 MG TABLET PO SCH (10:34)
[2018-07-08] MEDS: NIFEdipine 30 MG TAB.XL.24H PO SCH (10:34)
[2018-07-08] MEDS: LISINOPRIL 20 MG TABLET PO SCH (10:35)
[2018-07-08] MEDS: FOLIC ACID 1 MG TABLET PO SCH (10:35)
[2018-07-08] MEDS: MULTIVIT,THER IRON,CA,FA & MIN 1 TABLET PO SCH (10:35)
[2018-07-08] MEDS: DOCUSATE SODIUM 100 MG CAPSULE PO SCH ×2 (10:35→20:56)
--- NOTE | 2018-07-08 11:01 | Internal Med Progress Note ---
Medical - PN: Subj Patient information: Note initiated : 07/08/18 at 10:57 am Service Date, if different from initiated Date: [] Patient: Vaughn Jolly 53 y/o M admitted on 07/05/18 for Cellulitis, Osteomyelitis. Chief Complaint: [] Interval history: overnight pt complains of constipation attributes to percocet and says that oral dilaudid would not cause constipation. Says foot became swollen about a week ago on Monday and went to work last monday. He poked his toe with hot needle got a few drops of blood and no pus. amputation was on 07/06. Pt says has neuropathy but not diabetes. couldnt feel much pain. history of MRSA past and also on cultures done at transferring hospital this illness. Seen by ID and switched to Daptomycin. Pertinent ROS: no fevers overnight - Constitutional Vitals: Vital Signs Temp Pulse Resp BP Pulse Ox 97.3 F 82 16 118/78 93 07/08/18 08:00 07/08/18 04:00 07/08/18 08:00 07/08/18 08:00 07/08/18 08:00 Period Temp Pulse Resp BP Sys/Downing Pulse Ox Last 24 Hr 97.2 F-99.0 F 68-100 14-18 114-141/72-92 91-97 Intake and Output 07/07/18 07/08/18 07/08/18 21:59 05:59 13:59 Intake Total 800 / 800 Balance 800 / 800 Weight 257 lb Intake & Output: Intake & Output 07/07/18 07/08/18 07/08/18 21:59 05:59 13:59 Intake Total 800 / 800 Balance 800 / 800 Weight 257 lb Intake: Oral 800 / 800 Other: Urine Appearance Clear Clear Urine Color Bright Yellow Bright Yellow Urine Odor Normal Normal # Voids 1 1 General appearance: average body habitus, cooperative Exam: muscular man appears younger than stated age - Respiratory Respiratory exam: Present: normal respiratory exam. Absent: rales, respiratory distress, wheezes - Cardiovascular Cardiovascular exam: Present: normal rate and rhythm. Absent: systolic murmur - Extremities Exam Extremities exam: Present: normal inspection, Foot pink and warm. Absent: calf tenderness Additional comments: right toe stump sutures intact. not fully visualized. Dressing shifted not removed - Neurological Exam Neurological exam: Present: alert, oriented X3 - Psychiatric Psychiatric exam: Present: normal affect Medical - PN: Obj Da - Labs CBC & Chem 7: 07/08/18 04:02 07/08/18 04:02 Labs: Abnormal Lab Results 07/08/18 07/08/18 07/07/18 04:02 04:02 04:05 RBC Hgb Hct 40.6 L BUN 21 H Calcium Phosphorus Lactate Dehydrogenase 286 H Albumin 2.9 L Globulin 3.9 H 3.8 H Albumin/Globulin Ratio 0.8 L 0.8 L 07/07/18 07/06/18 07/06/18 04:05 04:05 04:05 RBC 4.41 L 4.26 L Hgb 12.9 L 12.5 L Hct 37.9 L 36.8 L BUN Calcium 8.5 L Phosphorus 4.7 H Lactate Dehydrogenase Albumin 2.7 L Globulin Albumin/Globulin Ratio 0.8 L Meds: Medications Bisacodyl (Dulcolax) 10 mg DE Q2-3DAYS PRN PRN Reason: Constipation Last Admin: 07/07/18 14:56 Dose: 10 mg Clonidine HCl (Catapres) 0.1 mg PO Q4HP PRN PRN Reason: Hypertension Daptomycin (Cubicin) 940 mg 8 mg/kg (940 mg) IV Q24H [facility] Last Admin: 07/07/18 13:11 Dose: 940 mg Docusate Sodium (Colace) 100 mg PO BID [facility] Last Admin: 07/08/18 10:35 Dose: 100 mg Folic Acid (Folic Acid) 1 mg PO DAILY [facility] Last Admin: 07/08/18 10:35 Dose: 1 mg Heparin Sodium (Porcine) (Heparin) 5,000 unit SQ Q12 [facility] Last Admin: 07/08/18 10:34 Dose: 5,000 unit Hydrochlorothiazide (Oretic) 25 mg PO DAILY [facility] Last Admin: 07/08/18 10:34 Dose: 25 mg Iron Carb/Multivit/[place]/Folic Acid (Multivitamin W/Minerals) 1 tab PO DAILY [facility] Last Admin: 07/08/18 10:35 Dose: 1 tab Lisinopril (Zestril) 20 mg PO DAILY [facility] Last Admin: 07/08/18 10:35 Dose: 20 mg Lorazepam (Ativan) 0 mg IV Q4HP PRN; Protocol PRN Reason: Alcohol Withdrawal Magnesium Hydroxide (Milk Of Magnesia) 30 ml PO BIDP PRN PRN Reason: Constipation Last Admin: 07/07/18 20:22 Dose: 30 ml Morphine Sulfate (Morphine) 0 mg IV Q1HP PRN PRN Reason: PAIN LEVEL > 6 Last Admin: 07/08/18 10:33 Dose: 4 mg Nifedipine (Procardia Xl) 60 mg PO DAILY [facility] Last Admin: 07/08/18 10:34 Dose: 60 mg Omeprazole (Prilosec) 20 mg PO ACB [facility] Last Admin: 07/08/18 10:34 Dose: 20 mg Ondansetron HCl (Zofran) 4 mg IV Q4HP PRN PRN Reason: Nausea And Vomiting Oxycodone HCl (Roxicodone) 0 mg PO Q4HP PRN PRN Reason: PAIN LEVEL 3-6 Last Admin: 07/07/18 20:22 Dose: 10 mg Polyethylene Glycol (Miralax) 17 gm PO DAILYP PRN PRN Reason: Constipation Last Admin: 07/08/18 10:32 Dose: 17 gm Senna/Docusate Sodium (Senna Plus Tablet) 1 tab PO BID [facility] Last Admin: 07/08/18 10:34 Dose: 1 tab Sodium Biphosphate/Sodium Phosphate (Fleets Adult) 1 dose DE Q3-4DAYS PRN PRN Reason: Constipation Sodium Chloride (Saline Flush) 10 ml IV Q8 [facility] Last Admin: 07/08/18 04:03 Dose: 10 ml Thiamine HCl (Vitamin B1) 100 mg PO QDAY [facility] Last Admin: 07/08/18 10:34 Dose: 100 mg Throat Lozenges (Cepacol) 1 lozenge PO PRN PRN PRN Reason: Sore Throat Last Admin: 07/05/18 23:08 Dose: 1 lozenge Trazodone HCl (Desyrel) 50 mg PO HSP PRN PRN Reason: Insomnia Last Admin: 07/07/18 20:28 Dose: 50 mg Medical - PN: A/P - Time Spent With Patient Total time spent is greater than 50% in coordination of care (as documented) at patient's floor/unit and/or counseling patient: Greater than 35 minutes (1) Acquired absence of great toe Problem details: resected by Orthopedic surgeon this admission Status: Acute Current Visit: Yes (2) Abscess of foot Problem details: staph. await blood cultures. 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
[2018-07-08] MEDS: GABAPENTIN 100 MG CAPSULE PO SCH ×2 (18:03→20:55)
[2018-07-08] MEDS ORDERED: MAGNESIUM CITRATE 300 ML ORAL.SOL PO ONE (18:43)
[2018-07-08] MEDS: traZODone HCL 50 MG TABLET PO PRN (22:34)
[2018-07-09] MEDS: 0.9 % SODIUM CHLORIDE 10 ML SYRINGE IV SCH ×5 (03:31→21:16)
[2018-07-09 06:25] LABS: Basophils # (Auto) 0.1 K/mcL (0.0-0.3); Basophils % (Auto) 0.8 % (0.0-2.0); Eosinophils # (Auto) 0.4 K/mcL (0.0-0.7); Eosinophils % (Auto) 6.6 % (0.0-7.0); Granulocytes % (Auto) 49.7 % (38.0-78.0); Lymphocytes # (Auto) 2.2 K/mcL (1.5-4.8); Lymphocytes % (Auto) 34.1 % (15.5-49.0); Mean Corpuscular HGB Conc 34.1 g/dL (31.0-36.0); Monocytes # (Auto) 0.6 K/mcL (0.1-0.9); Monocytes % (Auto) 8.8 % (1.0-12.0); Platelet Count 344 K/mcL (140-440); RBC 4.52 M/mcL (4.50-5.90); Red Cell Distribution Width 13.6 % (11.5-14.5)
[2018-07-09 06:48] LABS: ALT/SGPT 24 U/l (0-40); Albumin 3.1 gm/dL (3.2-5.2); Albumin/Globulin Ratio 0.9 (1.0-2.3); Alkaline Phosphatase 59 U/L (39-117); Bilirubin,Direct < 0.2 mg/dL (0.0-0.3); Blood Urea Nitrogen 31 mg/dl (6-20); Gamma Glutamyl Transpeptidase 37 U/L (8-61); Uric Acid 6.1 mg/dL (2.5-8.0)
[2018-07-09] MEDS: OMEPRAZOLE 20 MG CAPSULE PO SCH (07:35)
[2018-07-09] MEDS: NIFEdipine 30 MG TAB.XL.24H PO SCH (09:14)
[2018-07-09] MEDS: THIAMINE 100 MG TABLET PO SCH (09:15)
[2018-07-09] MEDS: DOCUSATE SODIUM 100 MG CAPSULE PO SCH ×2 (09:15→21:14)
[2018-07-09] MEDS: SENNOSIDES/DOCUSATE SODIUM 1 TAB TABLET PO SCH ×2 (09:15→21:14)
[2018-07-09] MEDS: MULTIVIT,THER IRON,CA,FA & MIN 1 TABLET PO SCH (09:15)
[2018-07-09] MEDS: FOLIC ACID 1 MG TABLET PO SCH (09:15)
[2018-07-09] MEDS: LISINOPRIL 20 MG TABLET PO SCH (09:15)
[2018-07-09] MEDS: GABAPENTIN 100 MG CAPSULE PO SCH ×4 (09:15→21:14)
[2018-07-09] MEDS: HEPARIN 5,000 UNIT/ML VIAL SQ SCH ×2 (09:16→21:13)
[2018-07-09] MEDS: HYDROCHLOROTHIAZIDE 25 MG TABLET PO SCH (09:17)
[2018-07-09] MEDS: DAPTOmycin 500 MG VIAL IV SCH (10:44)
--- NOTE | 2018-07-09 13:35 | Infectious Disease Prog Note ---
Subjective Patient information: Note initiated : 07/09/18 at 1:29 pm Service Date, if different from initiated Date: [] Patient: Vaughn Jolly 53 y/o M admitted on 07/05/18 for Cellulitis, Osteomyelitis. Chief Complaint: [] Principal diagnosis: r foot abscess Interval history: Patient is doing well overall. He rates his pain in the right foot stump at around 7 out of 10. Denies any fever, chills, nausea, vomiting, diarrhea. Discussed with him the plan to continue antibiotics for around 4 weeks and decolonization protocol. Patient voiced understanding Objective - Vital Signs Vital signs: Vital Signs Temp Pulse Resp BP Pulse Ox 07/09/18 12:00 91 07/09/18 11:07 36.6 C 18 119/64 91 07/09/18 08:00 36.6 C 18 112/75 94 07/09/18 04:00 36.4 C 76 16 118/62 91 07/08/18 23:42 92 07/08/18 23:41 36.9 C 78 18 130/76 92 07/08/18 20:00 36.3 C 82 16 148/80 92 07/08/18 16:00 95 07/08/18 15:14 36.0 C L 18 116/82 93 Intake and Output 07/08/18 07/09/18 07/09/18 21:59 05:59 13:59 Intake Total 940 / 940 550 / 550 800 / 800 Output Total 625 / 625 500 / 500 Balance 315 / 315 550 / 550 300 / 300 Intake: Oral 940 / 940 550 / 550 800 / 800 Output: Void Amount 625 / 625 500 / 500 Other: Meal Lunch sandwich Lunch Percent of Meal Consumed 100% 100% 100% Feeding Ability Independent Independent Urine Appearance Clear Urine Color Bright Yellow Urine Odor Normal Stool Size Small Moderate Stool Color Brown Stool Consistency Soft Liquid # Voids 1 1 # Bowel Movements 1 1 Weight 117.254 kg Intake & Output: Intake & Output 07/08/18 07/09/18 07/09/18 21:59 05:59 13:59 Intake Total 940 / 940 550 / 550 800 / 800 Output Total 625 / 625 500 / 500 Balance 315 / 315 550 / 550 300 / 300 Weight 117.254 kg Intake: Oral 940 / 940 550 / 550 800 / 800 Output: Void Amount 625 / 625 500 / 500 Other: Meal Lunch sandwich Lunch Percent of Meal Consumed 100% 100% 100% Feeding Ability Independent Independent Urine Appearance Clear Urine Color Bright Yellow Urine Odor Normal Stool Size Small Moderate Stool Color Brown Stool Consistency Soft Liquid # Voids 1 1 # Bowel Movements 1 1 - General Appearance General appearance: well-developed, well-nourished Respiratory: clear Cardiology: no murmurs, normal S1, normal S2 Gastrointestinal: normoactive bowel sounds Musculoskeletal: erythema (The operative site the right foot has some erythema, edema, warmth. No drainage observed or expressed. Sutures remain intact.) - Lab 07/09/18 04:30 07/09/18 04:30 Most recent lab results Calcium 9.4 mg/dl (8.6-10.4) 07/09/18 04:30 Phosphorus 4.5 mg/dL (2.7-4.5) 07/09/18 04:30 Magnesium 2.4 mg/dL (1.6-2.5) 07/09/18 04:30 Microbiology 07/06/18 09:25 Blood Blood Culture - Preliminary 07/06/18 09:43 Blood Blood Culture - Preliminary 07/05/18 19:00 Toe - First Gram Stain - Final 07/05/18 19:00 Toe - First Gram Stain - Final 07/05/18 19:00 Toe - First Anaerobic Culture - Preliminary 07/05/18 19:00 Toe - First Gram Stain - Final 07/05/18 19:00 Toe - First Wound Culture - Final Methicillin resistant s.aureus 07/05/18 19:00 Toe - First Gram Stain - Final 07/05/18 19:00 Toe - First Gram Stain - Final 07/05/18 19:00 Toe - First Anaerobic Culture - Preliminary 07/05/18 19:00 Toe - First Gram Stain - Final 07/05/18 19:00 Toe - First Wound Culture - Final Medications Active Medications: Bisacodyl (Dulcolax) 10 mg ND Q2-3DAYS PRN PRN Reason: Constipation Last Admin: 07/07/18 14:56 Dose: 10 mg Clonidine HCl (Catapres) 0.1 mg PO Q4HP PRN PRN Reason: Hypertension Daptomycin (Cubicin) 940 mg 8 mg/kg (940 mg) IV Q24H [facility] Last Admin: 07/09/18 10:44 Dose: 940 mg Admin: 07/08/18 10:00 Dose: 940 mg Admin: 07/07/18 13:11 Dose: 940 mg Admin: 07/06/18 11:50 Dose: 940 mg Docusate Sodium (Colace) 100 mg PO BID [facility] Last Admin: 07/09/18 09:15 Dose: 100 mg Admin: 07/08/18 20:56 Dose: 100 mg Admin: 07/08/18 10:35 Dose: 100 mg Admin: 07/07/18 20:22 Dose: 100 mg Admin: 07/07/18 10:20 Dose: 100 mg Admin: 07/06/18 21:36 Dose: 100 mg Admin: 07/06/18 09:08 Dose: 100 mg Folic Acid (Folic Acid) 1 mg PO DAILY [facility] Last Admin: 07/09/18 09:15 Dose: 1 mg Admin: 07/08/18 10:35 Dose: 1 mg Admin: 07/07/18 10:20 Dose: 1 mg Admin: 07/06/18 09:08 Dose: 1 mg Gabapentin (Neurontin) 100 mg PO QID [facility] Last Admin: 07/09/18 13:12 Dose: 100 mg Admin: 07/09/18 09:15 Dose: 100 mg Admin: 07/08/18 20:55 Dose: 100 mg Admin: 07/08/18 18:03 Dose: 100 mg Heparin Sodium (Porcine) (Heparin) 5,000 unit SQ Q12 [facility] Last Admin: 07/09/18 09:16 Dose: 5,000 unit Admin: 07/08/18 20:55 Dose: 5,000 unit Admin: 07/08/18 10:34 Dose: 5,000 unit Admin: 07/07/18 20:23 Dose: 5,000 unit Hydrochlorothiazide (Oretic) 25 mg PO DAILY [facility] Last Admin: 07/09/18 09:17 Dose: 25 mg Comments: will not scan Admin: 07/08/18 10:34 Dose: 25 mg Admin: 07/07/18 10:19 Dose: 25 mg Admin: 07/06/18 09:08 Dose: 25 mg Iron Carb/Multivit/[place]/Folic Acid (Multivitamin W/Minerals) 1 tab PO DAILY [facility] Last Admin: 07/09/18 09:15 Dose: 1 tab Admin: 07/08/18 10:35 Dose: 1 tab Admin: 07/07/18 10:19 Dose: 1 tab Admin: 07/06/18 09:08 Dose: 1 tab Lisinopril (Zestril) 20 mg PO DAILY [facility] Last Admin: 07/09/18 09:15 Dose: 20 mg Admin: 07/08/18 10:35 Dose: 20 mg Admin: 07/07/18 10:19 Dose: 20 mg Admin: 07/06/18 09:08 Dose: 20 mg Admin: 07/05/18 21:42 Dose: 20 mg Lorazepam (Ativan) 0 mg IV Q4HP PRN; Protocol PRN Reason: Alcohol Withdrawal Magnesium Hydroxide (Milk Of Magnesia) 30 ml PO BIDP PRN PRN Reason: Constipation Last Admin: 07/07/18 20:22 Dose: 30 ml Morphine Sulfate (Morphine) 0 mg IV Q1HP PRN PRN Reason: PAIN LEVEL > 6 Last Admin: 07/08/18 22:35 Dose: 4 mg Admin: 07/08/18 10:33 Dose: 4 mg Mupirocin (Bactroban Oint 2%) 1 dose TOPICAL TID [facility] Nifedipine (Procardia Xl) 60 mg PO DAILY [facility] Last Admin: 07/09/18 09:14 Dose: 60 mg Admin: 07/08/18 10:34 Dose: 60 mg Admin: 07/07/18 10:18 Dose: 60 mg Admin: 07/06/18 09:07 Dose: 60 mg Omeprazole (Prilosec) 20 mg PO ACB [facility] Last Admin: 07/09/18 07:35 Dose: 20 mg Admin: 07/08/18 10:34 Dose: 20 mg Admin: 07/07/18 10:19 Dose: 20 mg Admin: 07/06/18 07:21 Dose: 20 mg Ondansetron HCl (Zofran) 4 mg IV Q4HP PRN PRN Reason: Nausea And Vomiting Oxycodone HCl (Roxicodone) 0 mg PO Q4HP PRN PRN Reason: PAIN LEVEL 3-6 Last Admin: 07/07/18 20:22 Dose: 10 mg Admin: 07/07/18 14:54 Dose: 10 mg Admin: 07/07/18 10:19 Dose: 10 mg Admin: 07/06/18 23:12 Dose: 10 mg Admin: 07/06/18 18:45 Dose: 10 mg Admin: 07/06/18 14:47 Dose: 10 mg Admin: 07/06/18 07:21 Dose: 10 mg Admin: 07/05/18 21:42 Dose: 10 mg Polyethylene Glycol (Miralax) 17 gm PO DAILYP PRN PRN Reason: Constipation Last Admin: 07/08/18 10:32 Dose: 17 gm Admin: 07/07/18 18:42 Dose: 17 gm Senna/Docusate Sodium (Senna Plus Tablet) 1 tab PO BID [facility] Last Admin: 07/09/18 09:15 Dose: 1 tab Admin: 07/08/18 20:56 Dose: 1 tab Admin: 07/08/18 10:34 Dose: 1 tab Admin: 07/07/18 20:22 Dose: 1 tab Admin: 07/07/18 13:11 Dose: 1 tab Sodium Biphosphate/Sodium Phosphate (Fleets Adult) 1 dose ND Q3-4DAYS PRN PRN Reason: Constipation Sodium Chloride (Saline Flush) 10 ml IV Q8 [facility] Last Admin: 07/09/18 05:30 Dose: Admin: 07/09/18 03:31 Dose: 10 ml Admin: 07/08/18 20:56 Dose: 10 ml Admin: 07/08/18 13:21 Dose: Admin: 07/08/18 04:03 Dose: 10 ml Admin: 07/07/18 20:23 Dose: 10 ml Admin: 07/07/18 13:11 Dose: Not Given Non-Admin Reason: Bag Still Infusing Admin: 07/07/18 06:00 Dose: Admin: 07/06/18 21:36 Dose: 10 ml Admin: 07/06/18 14:10 Dose: Not Given Non-Admin Reason: Continuous IV Admin: 07/06/18 05:26 Dose: 10 ml Admin: 07/05/18 22:52 Dose: Not Given Non-Admin Reason: Continuous IV Thiamine HCl (Vitamin B1) 100 mg PO QDAY [facility] Last Admin: 07/09/18 09:15 Dose: 100 mg Admin: 07/08/18 10:34 Dose: 100 mg Admin: 07/07/18 10:19 Dose: 100 mg Admin: 07/06/18 09:07 Dose: 100 mg Admin: 07/05/18 21:42 Dose: 100 mg Throat Lozenges (Cepacol) 1 lozenge PO PRN PRN PRN Reason: Sore Throat Last Admin: 07/05/18 23:08 Dose: 1 lozenge Trazodone HCl (Desyrel) 50 mg PO HSP PRN PRN Reason: Insomnia Last Admin: 07/08/18 22:34 Dose: 50 mg Admin: 07/07/18 20:28 Dose: 50 mg Assessment and Plan - Narrative A/P Narrative: Assessment: 1. MRSA bacteremia: Vanco STEVE of 2 which increases the risk for failure for severe MRSA infection [bacteremia, endocarditis, osteomyelitis] -TTE report pending -Blood cultures from 07/04+ for MRSA, from 07/06 neg so far -Bone culture from right great toe positive for MRSA while the cultures from proximal phalanx are no growth to date. Given culture from biopsy of remaining bone is negative, will plan for a shorter course of treatment 2. Right first toe septic arthritis and osteomyelitis, status post amputation of distal phalanx and debridement: Postoperative day 4 3. No sepsis Recommendations: Continue IV daptomycin at 8 mg/kg [= 8 x 117 = 936 mg] ~ 950 mg q 24 hrs, day 4 of therapy Await final report of TTE to rule out any endocarditis The PICC line can be placed as blood cultures from 07/06 are negative for 72 hours Given this is second episode of MRSA infection, will recommend decolonization with 2% intranasal mupirocin twice daily for 5 days and whole body chlorhexidine 2% wipes [to be applied below the neck] once daily for 5 days - will plan for a 4-week course of IV Daptomycin, with ID f/u. Full details at time of discharge We will follow Mark Blancas MD Infectious disease
[2018-07-09] MEDS ORDERED: 0.9 % SODIUM CHLORIDE 10 ML SYRINGE IV PRN (15:15)
[2018-07-09] MEDS: MUPIROCIN OINT 2% 22GM TOPICAL SCH ×2 (15:21→21:15)
--- NOTE | 2018-07-09 19:10 | XRay Report ---
CLINICAL INFORMATION: PICC PLACEMENT COMPARISON: None. FINDINGS: Heart is accentuated by lordotic positioning upper to cephalic SVC junction and within normal limits. Mediastinum and pulmonary vessels are normal. The lungs are clear. No effusions. Left PICC line tip overlies the left brachycephalic SVC junction. IMPRESSION: No acute disease. PICC line tip overlying the Interpreted and Authenticated by: Samson Hagen 07/09/18
--- NOTE | 2018-07-09 20:33 | Internal Med Progress Note ---
Medical - PN: Subj Patient information: Note initiated : 07/09/18 at 8:30 pm Service Date, if different from initiated Date: [] Patient: Vaughn Jolly 53 y/o M admitted on 07/05/18 for Cellulitis, Osteomyelitis. Chief Complaint: [] blood cultures from this admission negative for 72 hours. Echo showed no vegetations. PICC line place today and confirmed placement. Pt feels well and agreeable to discharge tomorrow and outpt antibiotics. passed lots of stool. Pertinent ROS: no fevers - Constitutional Vitals: Vital Signs Temp Pulse Resp BP Pulse Ox 98.7 F 92 H 20 130/90 96 07/09/18 19:00 07/09/18 19:00 07/09/18 19:00 07/09/18 19:00 07/09/18 19:00 Period Temp Pulse Resp BP Sys/Downing Pulse Ox Last 24 Hr 97.5 F-98.7 F 76-92 16-20 112-130/60-90 91-96 Intake and Output 07/09/18 07/09/18 07/09/18 05:59 13:59 21:59 Intake Total 550 / 550 800 / 800 400 / 400 Output Total 500 / 500 Balance 550 / 550 300 / 300 400 / 400 Intake & Output: Intake & Output 07/09/18 07/09/18 07/09/18 05:59 13:59 21:59 Intake Total 550 / 550 800 / 800 400 / 400 Output Total 500 / 500 Balance 550 / 550 300 / 300 400 / 400 Intake: Oral 550 / 550 800 / 800 400 / 400 Output: Void Amount 500 / 500 Other: Meal sandwich Lunch Dinner Percent of Meal Consumed 100% 100% 100% Feeding Ability Independent Independent Stool Size Small Moderate Stool Color Brown Stool Consistency Soft Liquid # Voids 1 1 # Bowel Movements 1 1 - Expanded Lower Extremity Exam Foot/Toe exam: Present: amputation (right halux with sutures intact but football shaped area on mid distal stump not closed and appears to have been due to insufficient skin. No discharge. Mild swollen and granulation tissue noted. no pus) Medical - PN: Obj Da - Labs CBC & Chem 7: 07/09/18 04:30 07/09/18 04:30 Labs: Abnormal Lab Results 07/09/18 07/09/18 07/08/18 04:30 04:30 04:02 RBC Hgb 13.1 L Hct 38.4 L BUN 31 H 21 H Lactate Dehydrogenase Albumin 3.1 L Globulin 3.9 H Albumin/Globulin Ratio 0.9 L 0.8 L 07/08/18 07/07/18 07/07/18 04:02 04:05 04:05 RBC 4.41 L Hgb 12.9 L Hct 40.6 L 37.9 L BUN Lactate Dehydrogenase 286 H Albumin 2.9 L Globulin 3.8 H Albumin/Globulin Ratio 0.8 L Meds: Medications Bisacodyl (Dulcolax) 10 mg DC Q2-3DAYS PRN PRN Reason: Constipation Last Admin: 07/07/18 14:56 Dose: 10 mg Clonidine HCl (Catapres) 0.1 mg PO Q4HP PRN PRN Reason: Hypertension Daptomycin (Cubicin) 940 mg 8 mg/kg (940 mg) IV Q24H [facility] Last Admin: 07/09/18 10:44 Dose: 940 mg Docusate Sodium (Colace) 100 mg PO BID [facility] Last Admin: 07/09/18 09:15 Dose: 100 mg Folic Acid (Folic Acid) 1 mg PO DAILY [facility] Last Admin: 07/09/18 09:15 Dose: 1 mg Gabapentin (Neurontin) 100 mg PO QID [facility] Last Admin: 07/09/18 19:00 Dose: 100 mg Heparin Sodium (Porcine) (Heparin) 5,000 unit SQ Q12 [facility] Last Admin: 07/09/18 09:16 Dose: 5,000 unit Heparin Sodium (Porcine) (Heparin Flush) 2 ml IV Q12 [facility] Hydrochlorothiazide (Oretic) 25 mg PO DAILY [facility] Last Admin: 07/09/18 09:17 Dose: 25 mg Iron Carb/Multivit/[place]/Folic Acid (Multivitamin W/Minerals) 1 tab PO DAILY [facility] Last Admin: 07/09/18 09:15 Dose: 1 tab Lisinopril (Zestril) 20 mg PO DAILY [facility] Last Admin: 07/09/18 09:15 Dose: 20 mg Lorazepam (Ativan) 0 mg IV Q4HP PRN; Protocol PRN Reason: Alcohol Withdrawal Magnesium Hydroxide (Milk Of Magnesia) 30 ml PO BIDP PRN PRN Reason: Constipation Last Admin: 07/07/18 20:22 Dose: 30 ml Morphine Sulfate (Morphine) 0 mg IV Q1HP PRN PRN Reason: PAIN LEVEL > 6 Last Admin: 07/09/18 19:48 Dose: 2 mg Mupirocin (Bactroban Oint 2%) 1 dose TOPICAL TID [facility] Last Admin: 07/09/18 15:21 Dose: 1 dose Nifedipine (Procardia Xl) 60 mg PO DAILY [facility] Last Admin: 07/09/18 09:14 Dose: 60 mg Omeprazole (Prilosec) 20 mg PO ACB [facility] Last Admin: 07/09/18 07:35 Dose: 20 mg Ondansetron HCl (Zofran) 4 mg IV Q4HP PRN PRN Reason: Nausea And Vomiting Oxycodone HCl (Roxicodone) 0 mg PO Q4HP PRN PRN Reason: PAIN LEVEL 3-6 Last Admin: 07/07/18 20:22 Dose: 10 mg Polyethylene Glycol (Miralax) 17 gm PO DAILYP PRN PRN Reason: Constipation Last Admin: 07/08/18 10:32 Dose: 17 gm Senna/Docusate Sodium (Senna Plus Tablet) 1 tab PO BID [facility] Last Admin: 07/09/18 09:15 Dose: 1 tab Sodium Biphosphate/Sodium Phosphate (Fleets Adult) 1 dose DC Q3-4DAYS PRN PRN Reason: Constipation Sodium Chloride (Saline Flush) 10 ml IV Q8 [facility] Last Admin: 07/09/18 15:22 Dose: 10 ml Sodium Chloride (Saline Flush) 10 ml IV UD PRN PRN Reason: FLUSH Sodium Chloride (Saline Flush) 10 ml IV Q12 [facility] Thiamine HCl (Vitamin B1) 100 mg PO QDAY [facility] Last Admin: 07/09/18 09:15 Dose: 100 mg Throat Lozenges (Cepacol) 1 lozenge PO PRN PRN PRN Reason: Sore Throat Last Admin: 07/05/18 23:08 Dose: 1 lozenge Trazodone HCl (Desyrel) 50 mg PO HSP PRN PRN Reason: Insomnia Last Admin: 07/08/18 22:34 Dose: 50 mg Medical - PN: A/P - Time Spent With Patient Total time spent is greater than 50% in coordination of care (as documented) at patient's floor/unit and/or counseling patient: 15 - 24 minutes (1) Acquired absence of great toe Problem details: resected by Orthopedic surgeon this admission for osteomyelitis Status: Acute Current Visit: Yes (2) Abscess of foot Problem details: staph. await blood cultures negative tomorrow and picc line ok to use. home tomorrow with outpt infusion Status: Acute Current Visit: Yes (3) MRSA (methicillin resistant staph aureus) culture positive Problem details: plan dapto by PICC Status: Acute Current Visit: Yes Medical - PN: Qual - Stroke Symptom Onset Unknown: No - VTE Deep Vein Thrombosis/Pulmonary Embolism Present on Admission: No
[2018-07-10 05:27] LABS: Basophils # (Auto) 0.1 K/mcL (0.0-0.3); Basophils % (Auto) 0.7 % (0.0-2.0); Eosinophils # (Auto) 0.4 K/mcL (0.0-0.7); Eosinophils % (Auto) 5.2 % (0.0-7.0); Granulocytes % (Auto) 53.7 % (38.0-78.0); Lymphocytes # (Auto) 2.4 K/mcL (1.5-4.8); Lymphocytes % (Auto) 32.4 % (15.5-49.0); Mean Cell Volume 87.1 fL (80.0-100.0); Mean Corpuscular HGB Conc 33.2 g/dL (31.0-36.0); Mean Corpuscular Hemoglobin 28.9 pg (26.0-34.0); Monocytes # (Auto) 0.6 K/mcL (0.1-0.9); Platelet Count 343 K/mcL (140-440); RBC 4.43 M/mcL (4.50-5.90); Red Cell Distribution Width 13.9 % (11.5-14.5)
[2018-07-10 05:57] LABS: ALT/SGPT 22 U/l (0-40); Albumin 3.2 gm/dL (3.2-5.2); Albumin/Globulin Ratio 0.9 (1.0-2.3); Alkaline Phosphatase 57 U/L (39-117); Bilirubin,Direct < 0.2 mg/dL (0.0-0.3); Blood Urea Nitrogen 33 mg/dl (6-20); Gamma Glutamyl Transpeptidase 34 U/L (8-61); Uric Acid 6.4 mg/dL (2.5-8.0)
[2018-07-10] MEDS: NIFEdipine 30 MG TAB.XL.24H PO SCH (08:20)
[2018-07-10] MEDS: HEPARIN 5,000 UNIT/ML VIAL SQ SCH (08:20)
[2018-07-10] MEDS: OMEPRAZOLE 20 MG CAPSULE PO SCH (08:20)
[2018-07-10] MEDS: THIAMINE 100 MG TABLET PO SCH (08:20)
[2018-07-10] MEDS: 0.9 % SODIUM CHLORIDE 10 ML SYRINGE IV SCH ×3 (08:20→12:53)
[2018-07-10] MEDS: FOLIC ACID 1 MG TABLET PO SCH (08:21)
[2018-07-10] MEDS: DOCUSATE SODIUM 100 MG CAPSULE PO SCH (08:21)
[2018-07-10] MEDS: MULTIVIT,THER IRON,CA,FA & MIN 1 TABLET PO SCH (08:21)
[2018-07-10] MEDS: SENNOSIDES/DOCUSATE SODIUM 1 TAB TABLET PO SCH (08:21)
[2018-07-10] MEDS: GABAPENTIN 100 MG CAPSULE PO SCH ×2 (08:21→15:27)
[2018-07-10] MEDS: LISINOPRIL 20 MG TABLET PO SCH (08:21)
[2018-07-10] MEDS: MUPIROCIN OINT 2% 22GM TOPICAL SCH (08:22)
[2018-07-10] MEDS: HYDROCHLOROTHIAZIDE 25 MG TABLET PO SCH (08:30)
--- NOTE | 2018-07-10 10:37 | Infectious Disease Prog Note ---
Subjective Patient information: Note initiated : 07/10/18 at 10:35 am Service Date, if different from initiated Date: [] Patient: Vaughn Jolly 53 y/o M admitted on 07/05/18 for Cellulitis, Osteomyelitis. Chief Complaint: [] Principal diagnosis: r foot abscess Interval history: Patient is doing well. Endorses pain, ranks it around 5 out of 10 in the right great toe stump. Endorses some diarrhea although he has been on laxatives. Denies any fever, chills, nausea, vomiting. Objective Objective Narrative: Right foot covered in dressing, no soakage seen on the outside. - Vital Signs Vital signs: Vital Signs Temp Pulse Resp BP BP Pulse Ox 07/10/18 07:19 36.7 C 72 17 121/72 95 07/10/18 04:00 36.7 C 61 18 128/78 94 07/10/18 00:00 36.4 C 77 20 112/74 93 07/09/18 19:00 37.1 C 92 H 20 130/90 96 07/09/18 16:00 92 07/09/18 15:58 36.7 C 18 124/60 92 07/09/18 12:00 91 07/09/18 11:07 36.6 C 18 119/64 91 Intake and Output 07/09/18 07/10/18 07/10/18 21:59 05:59 13:59 Intake Total 850 / 850 750 / 750 Output Total 300 / 300 Balance 850 / 850 450 / 450 Intake: Oral 850 / 850 750 / 750 Output: Void Amount 300 / 300 Other: Meal Dinner Breakfast Percent of Meal Consumed 100% 100% Feeding Ability Independent Independent Urine Appearance Clear Urine Color Light Dacia Urine Odor Normal Stool Size Small Stool Consistency Loose # Voids 2 1 # Bowel Movements 1 Weight 117.48 kg Intake & Output: Intake & Output 07/09/18 07/10/18 07/10/18 21:59 05:59 13:59 Intake Total 850 / 850 750 / 750 Output Total 300 / 300 Balance 850 / 850 450 / 450 Weight 117.48 kg Intake: Oral 850 / 850 750 / 750 Output: Void Amount 300 / 300 Other: Meal Dinner Breakfast Percent of Meal Consumed 100% 100% Feeding Ability Independent Independent Urine Appearance Clear Urine Color Light Dacia Urine Odor Normal Stool Size Small Stool Consistency Loose # Voids 2 1 # Bowel Movements 1 - General Appearance General appearance: well-developed Respiratory: clear Cardiology: no murmurs, normal S1, normal S2 Gastrointestinal: normoactive bowel sounds, no tenderness Integumentary: no rash - Lab 07/10/18 04:00 07/10/18 04:00 Most recent lab results Calcium 9.3 mg/dl (8.6-10.4) 07/10/18 04:00 Phosphorus 5.0 mg/dL (2.7-4.5) H 07/10/18 04:00 Magnesium 2.2 mg/dL (1.6-2.5) 07/10/18 04:00 Microbiology 07/06/18 09:25 Blood Blood Culture - Preliminary 07/06/18 09:43 Blood Blood Culture - Preliminary 07/05/18 19:00 Toe - First Gram Stain - Final 07/05/18 19:00 Toe - First Gram Stain - Final 07/05/18 19:00 Toe - First Anaerobic Culture - Preliminary 07/05/18 19:00 Toe - First Gram Stain - Final 07/05/18 19:00 Toe - First Wound Culture - Final Methicillin resistant s.aureus 07/05/18 19:00 Toe - First Gram Stain - Final 07/05/18 19:00 Toe - First Gram Stain - Final 07/05/18 19:00 Toe - First Anaerobic Culture - Preliminary 07/05/18 19:00 Toe - First Gram Stain - Final 07/05/18 19:00 Toe - First Wound Culture - Final Medications Active Medications: Bisacodyl (Dulcolax) 10 mg TN Q2-3DAYS PRN PRN Reason: Constipation Last Admin: 07/07/18 14:56 Dose: 10 mg Clonidine HCl (Catapres) 0.1 mg PO Q4HP PRN PRN Reason: Hypertension Daptomycin (Cubicin) 940 mg 8 mg/kg (940 mg) IV Q24H COUNT INCLUDES [facility] Last Admin: 07/09/18 10:44 Dose: 940 mg Admin: 07/08/18 10:00 Dose: 940 mg Admin: 07/07/18 13:11 Dose: 940 mg Admin: 07/06/18 11:50 Dose: 940 mg Docusate Sodium (Colace) 100 mg PO BID COUNT INCLUDES THE [facility] Last Admin: 07/10/18 08:21 Dose: 100 mg Admin: 07/09/18 21:14 Dose: 100 mg Admin: 07/09/18 09:15 Dose: 100 mg Admin: 07/08/18 20:56 Dose: 100 mg Admin: 07/08/18 10:35 Dose: 100 mg Admin: 07/07/18 20:22 Dose: 100 mg Admin: 07/07/18 10:20 Dose: 100 mg Admin: 07/06/18 21:36 Dose: 100 mg Admin: 07/06/18 09:08 Dose: 100 mg Folic Acid (Folic Acid) 1 mg PO DAILY COUNT INCLUDES THE [facility] Last Admin: 07/10/18 08:21 Dose: 1 mg Admin: 07/09/18 09:15 Dose: 1 mg Admin: 07/08/18 10:35 Dose: 1 mg Admin: 07/07/18 10:20 Dose: 1 mg Admin: 07/06/18 09:08 Dose: 1 mg Gabapentin (Neurontin) 100 mg PO QID COUNT INCLUDES THE [facility] Last Admin: 07/10/18 08:21 Dose: 100 mg Admin: 07/09/18 21:14 Dose: 100 mg Admin: 07/09/18 19:00 Dose: 100 mg Admin: 07/09/18 13:12 Dose: 100 mg Admin: 07/09/18 09:15 Dose: 100 mg Admin: 07/08/18 20:55 Dose: 100 mg Admin: 07/08/18 18:03 Dose: 100 mg Heparin Sodium (Porcine) (Heparin) 5,000 unit SQ Q12 COUNT INCLUDES [facility] Last Admin: 07/10/18 08:20 Dose: 5,000 unit Admin: 07/09/18 21:13 Dose: 5,000 unit Admin: 07/09/18 09:16 Dose: 5,000 unit Admin: 07/08/18 20:55 Dose: 5,000 unit Admin: 07/08/18 10:34 Dose: 5,000 unit Admin: 07/07/18 20:23 Dose: 5,000 unit Heparin Sodium (Porcine) (Heparin Flush) 2 ml IV Q12 COUNT INCLUDES [facility] Last Admin: 07/10/18 08:19 Dose: 2 ml Admin: 07/09/18 21:14 Dose: 2 ml Comments: 2ml per port per protocol Hydrochlorothiazide (Oretic) 25 mg PO DAILY COUNT INCLUDES [facility] Last Admin: 07/10/18 08:30 Dose: 25 mg Comments: Med will not scan Admin: 07/09/18 09:17 Dose: 25 mg Comments: will not scan Admin: 07/08/18 10:34 Dose: 25 mg Admin: 07/07/18 10:19 Dose: 25 mg Admin: 07/06/18 09:08 Dose: 25 mg Iron Carb/Multivit/Religion Teacher/Folic Acid (Multivitamin W/Minerals) 1 tab PO DAILY COUNT INCLUDES [facility] Last Admin: 07/10/18 08:21 Dose: 1 tab Admin: 07/09/18 09:15 Dose: 1 tab Admin: 07/08/18 10:35 Dose: 1 tab Admin: 07/07/18 10:19 Dose: 1 tab Admin: 07/06/18 09:08 Dose: 1 tab Lisinopril (Zestril) 20 mg PO DAILY COUNT INCLUDES [facility] Last Admin: 07/10/18 08:21 Dose: 20 mg Admin: 07/09/18 09:15 Dose: 20 mg Admin: 07/08/18 10:35 Dose: 20 mg Admin: 07/07/18 10:19 Dose: 20 mg Admin: 07/06/18 09:08 Dose: 20 mg Admin: 07/05/18 21:42 Dose: 20 mg Lorazepam (Ativan) 0 mg IV Q4HP PRN; Protocol PRN Reason: Alcohol Withdrawal Magnesium Hydroxide (Milk Of Magnesia) 30 ml PO BIDP PRN PRN Reason: Constipation Last Admin: 07/07/18 20:22 Dose: 30 ml Morphine Sulfate (Morphine) 0 mg IV Q1HP PRN PRN Reason: PAIN LEVEL > 6 Last Admin: 07/09/18 21:15 Dose: 4 mg Admin: 07/09/18 19:48 Dose: 2 mg Admin: 07/09/18 17:12 Dose: 4 mg Admin: 07/08/18 22:35 Dose: 4 mg Admin: 07/08/18 10:33 Dose: 4 mg Mupirocin (Bactroban Oint 2%) 1 dose TOPICAL TID COUNT INCLUDES [facility] Last Admin: 07/10/18 08:22 Dose: 1 dose Admin: 07/09/18 21:15 Dose: 1 dose Admin: 07/09/18 15:21 Dose: 1 dose Nifedipine (Procardia Xl) 60 mg PO DAILY COUNT INCLUDES [facility] Last Admin: 07/10/18 08:20 Dose: 60 mg Admin: 07/09/18 09:14 Dose: 60 mg Admin: 07/08/18 10:34 Dose: 60 mg Admin: 07/07/18 10:18 Dose: 60 mg Admin: 07/06/18 09:07 Dose: 60 mg Omeprazole (Prilosec) 20 mg PO ACB COUNT INCLUDES [facility] Last Admin: 07/10/18 08:20 Dose: 20 mg Admin: 07/09/18 07:35 Dose: 20 mg Admin: 07/08/18 10:34 Dose: 20 mg Admin: 07/07/18 10:19 Dose: 20 mg Admin: 07/06/18 07:21 Dose: 20 mg Ondansetron HCl (Zofran) 4 mg IV Q4HP PRN PRN Reason: Nausea And Vomiting Oxycodone HCl (Roxicodone) 0 mg PO Q4HP PRN PRN Reason: PAIN LEVEL 3-6 Last Admin: 07/07/18 20:22 Dose: 10 mg Admin: 07/07/18 14:54 Dose: 10 mg Admin: 07/07/18 10:19 Dose: 10 mg Admin: 07/06/18 23:12 Dose: 10 mg Admin: 07/06/18 18:45 Dose: 10 mg Admin: 07/06/18 14:47 Dose: 10 mg Admin: 07/06/18 07:21 Dose: 10 mg Admin: 07/05/18 21:42 Dose: 10 mg Polyethylene Glycol (Miralax) 17 gm PO DAILYP PRN PRN Reason: Constipation Last Admin: 07/08/18 10:32 Dose: 17 gm Admin: 07/07/18 18:42 Dose: 17 gm Senna/Docusate Sodium (Senna Plus Tablet) 1 tab PO BID COUNT INCLUDES [facility] Last Admin: 07/10/18 08:21 Dose: 1 tab Admin: 07/09/18 21:14 Dose: 1 tab Admin: 07/09/18 09:15 Dose: 1 tab Admin: 07/08/18 20:56 Dose: 1 tab Admin: 07/08/18 10:34 Dose: 1 tab Admin: 07/07/18 20:22 Dose: 1 tab Admin: 07/07/18 13:11 Dose: 1 tab Sodium Biphosphate/Sodium Phosphate (Fleets Adult) 1 dose TN Q3-4DAYS PRN PRN Reason: Constipation Sodium Chloride (Saline Flush) 10 ml IV Q8 COUNT INCLUDES [facility] Last Admin: 07/10/18 08:20 Dose: 10 ml Admin: 07/09/18 21:16 Dose: 10 ml Admin: 07/09/18 15:22 Dose: 10 ml Admin: 07/09/18 05:30 Dose: Admin: 07/09/18 03:31 Dose: 10 ml Admin: 07/08/18 20:56 Dose: 10 ml Admin: 07/08/18 13:21 Dose: Admin: 07/08/18 04:03 Dose: 10 ml Admin: 07/07/18 20:23 Dose: 10 ml Admin: 07/07/18 13:11 Dose: Not Given Non-Admin Reason: Bag Still Infusing Admin: 07/07/18 06:00 Dose: Admin: 07/06/18 21:36 Dose: 10 ml Admin: 07/06/18 14:10 Dose: Not Given Non-Admin Reason: Continuous IV Admin: 07/06/18 05:26 Dose: 10 ml Admin: 07/05/18 22:52 Dose: Not Given Non-Admin Reason: Continuous IV Sodium Chloride (Saline Flush) 10 ml IV UD PRN PRN Reason: FLUSH Sodium Chloride (Saline Flush) 10 ml IV Q12 COUNT INCLUDES [facility] Last Admin: 07/10/18 08:31 Dose: 10 ml Admin: 07/09/18 21:16 Dose: 10 ml Thiamine HCl (Vitamin B1) 100 mg PO QDAY COUNT INCLUDES [facility] Last Admin: 07/10/18 08:20 Dose: 100 mg Admin: 07/09/18 09:15 Dose: 100 mg Admin: 07/08/18 10:34 Dose: 100 mg Admin: 07/07/18 10:19 Dose: 100 mg Admin: 07/06/18 09:07 Dose: 100 mg Admin: 07/05/18 21:42 Dose: 100 mg Throat Lozenges (Cepacol) 1 lozenge PO PRN PRN PRN Reason: Sore Throat Last Admin: 07/05/18 23:08 Dose: 1 lozenge Trazodone HCl (Desyrel) 50 mg PO HSP PRN PRN Reason: Insomnia Last Admin: 07/08/18 22:34 Dose: 50 mg Admin: 07/07/18 20:28 Dose: 50 mg Assessment and Plan - Narrative A/P Narrative: Assessment: 1. MRSA bacteremia: Vanco STEVE of 2 which increases the risk for failure for severe MRSA infection [bacteremia, endocarditis, osteomyelitis] -TTE report pending -Blood cultures from 07/04+ for MRSA, from 07/06 neg - TTE neg for any IE -Bone culture from right great toe positive for MRSA while the cultures from proximal phalanx are no growth to date. Given culture from biopsy of remaining bone is negative, will plan for a shorter course of treatment 2. 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 No sepsis Recommendations: Continue IV daptomycin at 8 mg/kg [= 8 x 117 = 936 mg] ~ 950 mg q 24 hrs, day 5 of therapy Given this is second episode of MRSA infection, will recommend decolonization with 2% intranasal mupirocin twice daily for 5 days and whole body chlorhexidine 2% wipes [to be applied below the neck] once daily for 5 days, today 2 - will plan for a 4-week course of IV Daptomycin, with ID f/u. Full details as below: Start date: 07/06 Stop date: 08/03/18 Follow up labs: BMP, CK once weekly ESR and CRP every other week ID f/u appt scheduled for 08/02/18 at 10:30 am in [facility] ([address] [place] [address] [address], [place], [place]) Mark Blancas MD Infectious disease
--- NOTE | 2018-07-10 11:44 | Transfer Summary ---
Transfer Discharge Sum: Prov Patient information: Note initiated : 07/10/18 at 11:42 am Service Date, if different from initiated Date: [] Patient: Vaughn Jolly 53 y/o M admitted on 07/05/18 for Cellulitis, Osteomyelitis. Chief Complaint: [] foot swelling and pain Date of admission: 07/05/18 14:10 Discharge Date: 07/10/18 Primary care physician: Rod Ratliff Admitting clinician: Seamus Small Consults: 07/05/18 19:44 Consult to Infectious Disease [CONS] Routine Comment: Consulting Provider: Mark Blancas Reason For Exam: Physician to Consult Attending physician on discharge: Mainor Melo Discharging clinician: Mainor Melo Transfer Discharge Sum: Diag - Discharge Diagnosis (1) Acquired absence of great toe Status: Acute Problem details: resected by Orthopedic surgeon this admission for osteomyelitis sutures out 10-14 days from resection if looks ready (2) Abscess of foot Status: Acute Problem details: MRSA intermediate sensitivity to Vanco so on Dapto for 4 weeks (3) MRSA (methicillin resistant staph aureus) culture positive Status: Acute Problem details: plan dapto by PICC (4) 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 Vasquez plan will treat for 4 weeks with Daptomycin via PICC line from date 07/06/18 Transfer Discharge Sum: Med - Medications Active and Home Medications: Home Medications Hydrochlorothiazide 20 mg PO DAILY 07/05/18 [History Confirmed 07/05/18] Methadone [Dolophine] 5 mg PO BID 07/05/18 [History Confirmed 07/05/18] NIFEdipine [Procardia] 50 mg PO DAILY 07/05/18 [History Confirmed 07/05/18] Omeprazole [PriLOSEC] 20 mg PO DAILY 07/05/18 [History Confirmed 07/05/18] Active Medications Bisacodyl (Dulcolax) 10 mg UT Q2-3DAYS PRN PRN Reason: Constipation Last Admin: 07/07/18 14:56 Dose: 10 mg Clonidine HCl (Catapres) 0.1 mg PO Q4HP PRN PRN Reason: Hypertension Daptomycin (Cubicin) 940 mg 8 mg/kg (940 mg) IV Q24H [facility] Last Admin: 07/09/18 10:44 Dose: 940 mg Docusate Sodium (Colace) 100 mg PO BID [facility] Last Admin: 07/10/18 08:21 Dose: 100 mg Folic Acid (Folic Acid) 1 mg PO DAILY [facility] Last Admin: 07/10/18 08:21 Dose: 1 mg Gabapentin (Neurontin) 100 mg PO QID [facility] Last Admin: 07/10/18 08:21 Dose: 100 mg Heparin Sodium (Porcine) (Heparin) 5,000 unit SQ Q12 [facility] Last Admin: 07/10/18 08:20 Dose: 5,000 unit Heparin Sodium (Porcine) (Heparin Flush) 2 ml IV Q12 [facility] Last Admin: 07/10/18 08:19 Dose: 2 ml Hydrochlorothiazide (Oretic) 25 mg PO DAILY [facility] Last Admin: 07/10/18 08:30 Dose: 25 mg Iron Carb/Multivit/Informaticist/Folic Acid (Multivitamin W/Minerals) 1 tab PO DAILY [facility] Last Admin: 07/10/18 08:21 Dose: 1 tab Lisinopril (Zestril) 20 mg PO DAILY [facility] Last Admin: 07/10/18 08:21 Dose: 20 mg Lorazepam (Ativan) 0 mg IV Q4HP PRN; Protocol PRN Reason: Alcohol Withdrawal Magnesium Hydroxide (Milk Of Magnesia) 30 ml PO BIDP PRN PRN Reason: Constipation Last Admin: 07/07/18 20:22 Dose: 30 ml Morphine Sulfate (Morphine) 0 mg IV Q1HP PRN PRN Reason: PAIN LEVEL > 6 Last Admin: 07/09/18 21:15 Dose: 4 mg Mupirocin (Bactroban Oint 2%) 1 dose TOPICAL TID [facility] Last Admin: 07/10/18 08:22 Dose: 1 dose Nifedipine (Procardia Xl) 60 mg PO DAILY [facility] Last Admin: 07/10/18 08:20 Dose: 60 mg Omeprazole (Prilosec) 20 mg PO ACB [facility] Last Admin: 07/10/18 08:20 Dose: 20 mg Ondansetron HCl (Zofran) 4 mg IV Q4HP PRN PRN Reason: Nausea And Vomiting Oxycodone HCl (Roxicodone) 0 mg PO Q4HP PRN PRN Reason: PAIN LEVEL 3-6 Last Admin: 07/07/18 20:22 Dose: 10 mg Polyethylene Glycol (Miralax) 17 gm PO DAILYP PRN PRN Reason: Constipation Last Admin: 07/08/18 10:32 Dose: 17 gm Senna/Docusate Sodium (Senna Plus Tablet) 1 tab PO BID [facility] Last Admin: 07/10/18 08:21 Dose: 1 tab Sodium Biphosphate/Sodium Phosphate (Fleets Adult) 1 dose UT Q3-4DAYS PRN PRN Reason: Constipation Sodium Chloride (Saline Flush) 10 ml IV Q8 [facility] Last Admin: 07/10/18 08:20 Dose: 10 ml Sodium Chloride (Saline Flush) 10 ml IV UD PRN PRN Reason: FLUSH Sodium Chloride (Saline Flush) 10 ml IV Q12 [facility] Last Admin: 07/10/18 08:31 Dose: 10 ml Thiamine HCl (Vitamin B1) 100 mg PO QDAY [facility] Last Admin: 07/10/18 08:20 Dose: 100 mg Throat Lozenges (Cepacol) 1 lozenge PO PRN PRN PRN Reason: Sore Throat Last Admin: 07/05/18 23:08 Dose: 1 lozenge Trazodone HCl (Desyrel) 50 mg PO HSP PRN PRN Reason: Insomnia Last Admin: 07/08/18 22:34 Dose: 50 mg Transfer Discharge Sum: Hosp Hospital course: Mr. Jolly is a 53 year old M admitted with osteomyelitis and peripheral neuropathy. Pt didnt recall any injury but had occult fracture of right halux and also osteomyelitis. Was transferred here from outside hospital and did do well with resection by Dr. Small. The wound is granulating in. Pt seen by Dr. Blancas and antibiotic treatment course will be 4 weeks from 1st negative blood cultures on 07/06. Pt had severe constipation with percocet and vicodin by history and had constipation here. Wants to take methadone 5mg which he says works and doesnt cause obstipation. Also had good response to gabapentin. - Time Spent with Patient Total time spent providing and/or coordinating transfer services: Greater than 30 minutes Transfer Discharge Sum: Exam - Constitutional Vitals: Vital Signs Temp Pulse Resp BP BP Pulse Ox 07/10/18 07:19 98.1 F 72 17 121/72 95 07/10/18 04:00 98.1 F 61 18 128/78 94 07/10/18 00:00 97.6 F 77 20 112/74 93 07/09/18 19:00 98.7 F 92 H 20 130/90 96 07/09/18 16:00 92 07/09/18 15:58 98.1 F 18 124/60 92 07/09/18 12:00 91 Intake and Output 07/09/18 07/10/18 07/10/18 21:59 05:59 13:59 Intake Total 850 / 850 750 / 750 Output Total 300 / 300 Balance 850 / 850 450 / 450 Intake: Oral 850 / 850 750 / 750 Output: Void Amount 300 / 300 Other: Meal Dinner Breakfast Percent of Meal Consumed 100% 100% Feeding Ability Independent Independent Urine Appearance Clear Urine Color Light Dacia Urine Odor Normal Stool Size Small Stool Consistency Loose # Voids 2 1 # Bowel Movements 1 Weight 259 lb - Respiratory Respiratory exam: Present: normal respiratory exam - Cardiovascular Cardiovascular exam: Present: normal rate and rhythm - Extremities Exam Extremities exam: Present: joint swelling, Foot pink and warm. Absent: pedal edema Additional comments: right halux stump dry with granulation tissue and intact sutures. eliptical area 8mm wide at widest not approximated but skin is sutured down and intact. Suspect will granulate in. no pus. mild tender only Left arm PICC noted. double lumen Transfer Discharge Sum: Data Procedures and tests throughout hospitalization: Pending Orders 07/05/18 Condition Routine 07/05/18 15:31 Incentive Spirometry Assess/Tx Q1HWA 07/05/18 17:58 Admit as Inpatient Routine Ambulate-Progressive TID Apply cold compression dressin Q4H Bladder Scan .Routine CSM Checks 08,12,16,20,00 Intake and Output 00,04,08,12,16,20 Vital Signs 2000,0000,0400,0800,1200,1600 Weight-bearing specification .See order Detail Resuscitation Status Routine Benzocaine/Menthol [Cepacol] 1 lozenge PO PRN PRN Bisacodyl [Dulcolax] 10 mg UT Q2-3DAYS PRN Magnesium Hydroxide [Milk of Magnesia] 30 ml PO BIDP PRN Na Phos,M-B/Na Phos,Di-Ba [Fleets Adult] 1 dose UT Q3-4DAYS PRN Ondansetron [Zofran] 4 mg IV Q4HP PRN Polyethylene Glycol 3350 [Miralax] 17 gm PO DAILYP PRN morphine See Dose Instructions IV Q1HP PRN oxyCODONE HCL [Roxicodone] See Dose Instructions PO Q4HP PRN RD to Adjust Diet/Supplements as Needed Routine Physical Therapy Eval & Tx .routine Oxygen Order .Routine 07/05/18 19:00 Anaerobic Culture and Gram St Routine Anaerobic Culture and Gram St Routine Gram Stain Routine Gram Stain Routine Wound Culture and Gram Stain Routine Wound Culture and Gram Stain Routine 07/05/18 19:44 Consult to Infectious Disease [CONS] Routine 07/05/18 19:53 Lisinopril [Zestril] 20 mg PO DAILY 07/05/18 19:54 Seizure precautions NOW Weight Monitoring 2100 LORazepam [Ativan] See Protocol IV Q4HP PRN cloNIDine HCL [Catapres] 0.1 mg PO Q4HP PRN 07/05/18 19:55 Thiamine [Vitamin B1] 100 mg PO QDAY 07/05/18 20:18 Regular Diet 07/05/18 22:00 0.9 % Sodium Chloride [Saline Flush] 10 ml IV Q8 07/06/18 07:30 Omeprazole [PriLOSEC] 20 mg PO ACB 07/06/18 09:00 Docusate Sodium [Colace] 100 mg PO BID Folic Acid 1 mg PO DAILY Hydrochlorothiazide [Oretic] 25 mg PO DAILY Multivit,Ther Iron,Ca,FA & Min [Multivitamin W/Minerals] 1 tab PO DAILY NIFEdipine [Procardia Xl] 60 mg PO DAILY 07/06/18 09:25 Blood Culture Urgent 07/06/18 10:00 DAPTOmycin [Cubicin] 940 mg IV Q24H 07/07/18 09:00 Sennosides/Docusate Sodium [Senna Plus Tablet] 1 tab PO BID 07/07/18 11:07 traZODone HCL [Desyrel] 50 mg PO HSP PRN 07/07/18 17:58 Wound Care/Dressings Q2D 07/07/18 18:09 Notify ONCE 07/07/18 21:00 Heparin 5,000 unit SQ Q12 07/08/18 17:00 Gabapentin [Neurontin] 100 mg PO QID 07/09/18 09:00 Wound Care/Dressings PRN 07/09/18 13:01 Communication order ONCE 07/09/18 15:00 Mupirocin Oint 2% [Bactroban Oint 2%] 1 dose TOPICAL TID 07/09/18 15:15 Consent for Procedure NOW Heat Therapy Device Management DAILY PICC Dressing Change PRN PICC Line ONCE 0.9 % Sodium Chloride [Saline Flush] 10 ml IV UD PRN 07/09/18 21:00 0.9 % Sodium Chloride [Saline Flush] 10 ml IV Q12 Heparin Flush 2 ml IV Q12 07/10/18 15:15 PICC Dressing Change ONCE 07/11/18 04:00 Complete Blood Count DAILY Inpatient Panel DAILY 07/12/18 04:00 Complete Blood Count DAILY Inpatient Panel DAILY 07/15/18 15:15 PICC Dressing Change Q7D Transfer Discharge Sum: A/P - Problem Maintenance (1) Acquired absence of great toe Status: Acute Comment: resected by Orthopedic surgeon this admission for osteomyelitis (2) Abscess of foot Status: Acute Comment: staph. await blood cultures negative tomorrow and picc line ok to use. 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
[2018-07-10] MEDS: DAPTOmycin 500 MG VIAL IV SCH (12:21)
--- NOTE | 2018-07-10 13:08 | Discharge Summary ---
Medical - DS: Prov Patient information: Note initiated : 07/10/18 at 1:06 pm Service Date, if different from initiated Date: [] Patient: Vaughn Jolly 53 y/o M admitted on 07/05/18 for Cellulitis, Osteomyelitis. Chief Complaint: [] Date of admission: 07/05/18 14:10 Discharge date: 07/10/18 Primary care physician: Rod Ratliff Admitting clinician: Seamus Small Consults: 07/05/18 19:44 Consult to Infectious Disease [CONS] Routine Comment: Consulting Provider: Mark Blancas Reason For Exam: Physician to Consult Attending physician on discharge: Mainor Melo Discharging clinician: Mainor Melo Medical - DS: Meds - Discharge Medications Prescriptions: Docusate Sodium [Colace] 100 mg PO BID #60 cap Folic Acid 1 mg PO DAILY #30 tab Gabapentin [Neurontin] 300 mg PO TID #90 cap Hydrochlorothiazide [Oretic] 25 mg PO DAILY #30 tab Lisinopril [Zestril] 20 mg PO DAILY #30 tab Magnesium Hydroxide [Milk of Magnesia] 30 ml PO BIDP PRN #400 ml PRN Reason: Constipation Methadone [Dolophine] 5 mg PO BID #30 tab Multivit,Ther Iron,Ca,FA & Min [Multivitamin W/Minerals] 1 tab PO DAILY #30 tab Mupirocin Oint 2% [Bactroban Oint 2%] 1 dose TOPICAL TID 7 Days #1 tube NIFEdipine [Procardia Xl] 60 mg PO DAILY #60 tab.xl.24h Omeprazole [Prilosec] 20 mg PO DAILY 30 Days #30 cap Polyethylene Glycol 3350 [Miralax] 17 gm PO DAILYP PRN #30 packet PRN Reason: Constipation traZODone HCL [Desyrel] 50 mg PO HSP PRN #30 tab PRN Reason: Insomnia Active and Home Medications: Home Medications DAPTOmycin [Cubicin] 940 mg IV Q24H vial 07/10/18 [Rx Last Taken Unknown] Docusate Sodium [Colace] 100 mg PO BID #60 cap 07/10/18 [Rx Last Taken Unknown] Folic Acid 1 mg PO DAILY #30 tab 07/10/18 [Rx Last Taken Unknown] Gabapentin [Neurontin] 300 mg PO TID #90 cap 07/10/18 [Rx Last Taken Unknown] Hydrochlorothiazide [Oretic] 25 mg PO DAILY #30 tab 07/10/18 [Rx Last Taken Unknown] Lisinopril [Zestril] 20 mg PO DAILY #30 tab 07/10/18 [Rx Last Taken Unknown] Magnesium Hydroxide [Milk of Magnesia] 30 ml PO BIDP PRN #400 ml 07/10/18 [Rx Last Taken Unknown] Methadone [Dolophine] 5 mg PO BID #30 tab 07/10/18 [Rx Last Taken Unknown] Multivit,Ther Iron,Ca,FA & Min [Multivitamin W/Minerals] 1 tab PO DAILY #30 tab 07/10/18 [Rx Last Taken Unknown] Mupirocin Oint 2% [Bactroban Oint 2%] 1 dose TOPICAL TID 7 Days #1 tube [Rx Last Taken Unknown] NIFEdipine [Procardia Xl] 60 mg PO DAILY #60 tab.xl.24h 07/10/18 [Rx Last Taken Unknown] Omeprazole [Prilosec] 20 mg PO DAILY 30 Days #30 cap 07/10/18 [Rx Last Taken Unknown] Polyethylene Glycol 3350 [Miralax] 17 gm PO DAILYP PRN #30 packet 07/10/18 [Rx Last Taken Unknown] traZODone HCL [Desyrel] 50 mg PO HSP PRN #30 tab 07/10/18 [Rx Last Taken Unknown ] Medical - DS: Hosp Hospital course: Mr. Jolly is a 53 year old M admitted with osteomyelitis and peripheral neuropathy. Pt didnt recall any injury but had occult fracture of right halux and also osteomyelitis. Was transferred here from outside hospital and did do well with resection by Dr. Small. The wound is granulating in. Pt seen by Dr. Blancas and antibiotic treatment course will be 4 weeks from 1st negative blood cultures on 07/06. Pt had severe constipation with percocet and vicodin by history and had constipation here. Wants to take methadone 5mg which he says works and doesnt cause obstipation. Also had good response to gabapentin. Discharge diagnosis: right halux osteomyelitis Secondary discharge diagnosis: peripheral neuropathy Reason for admission: right halux pain and swelling - Time Spent with Patient Total time spent providing and/or coordinating discharge services: Greater than 30 minutes Specific discharge activities: keep foot and Picc ine site clean and dry Medical - DS: Exam - Constitutional Vitals: Vital Signs Temp Pulse Resp BP BP Pulse Ox 07/10/18 12:00 97.8 F 81 15 125/81 95 07/10/18 07:19 98.1 F 72 17 121/72 95 07/10/18 04:00 98.1 F 61 18 128/78 94 07/10/18 00:00 97.6 F 77 20 112/74 93 07/09/18 19:00 98.7 F 92 H 20 130/90 96 07/09/18 16:00 92 07/09/18 15:58 98.1 F 18 124/60 92 Intake and Output 07/09/18 07/10/18 07/10/18 21:59 05:59 13:59 Intake Total 850 / 850 750 / 750 480 / 480 Output Total 300 / 300 Balance 850 / 850 450 / 450 480 / 480 Intake: Oral 850 / 850 750 / 750 480 / 480 Output: Void Amount 300 / 300 Other: Meal Dinner Lunch Percent of Meal Consumed 100% 100% Feeding Ability Independent Independent Urine Appearance Clear Urine Color Light [place]acia Urine Odor Normal Stool Size Small Stool Consistency Loose # Voids 2 1 # Bowel Movements 1 Weight 259 lb General appearance: average body habitus, no acute distress - Respiratory Respiratory exam: Present: normal respiratory exam - Cardiovascular Cardiovascular exam: Present: normal rate and rhythm - Extremities Exam Extremities exam: Present: Foot pink and warm. Absent: calf tenderness Additional comments: right halux stump with sutures intact but 8mm separation form skin margins that were not able to be closed. Granulating appropriately no pus. sutures in place - Psychiatric Psychiatric exam: Present: normal affect, normal mood Medical - DS: Data Labs on day of discharge: Labs from last 24 hours 07/10/18 07/10/18 04:00 04:00 WBC 7.5 RBC 4.43 L Hgb 12.8 L Hct 38.6 L MCV 87.1 MCH 28.9 MCHC 33.2 RDW 13.9 Plt Count 343 MPV 7.9 Gran % 53.7 Lymph % (Auto) 32.4 [place] % (Auto) 8.0 Eos % (Auto) 5.2 Baso % (Auto) 0.7 Gran # 4.0 Lymph # (Auto) 2.4 [place] # (Auto) 0.6 Eos # (Auto) 0.4 Baso # (Auto) 0.1 Sodium 138 Potassium 3.6 Chloride 99 Carbon Dioxide 25 Anion Gap 14.0 BUN 33 H Creatinine 1.1 GFR Calculation 77 Glucose 88 Uric Acid 6.4 Calcium 9.3 Phosphorus 5.0 H Magnesium 2.2 Total Bilirubin 0.3 Direct Bilirubin < 0.2 GGT 34 AST 25 ALT 22 Alkaline Phosphatase 57 Lactate Dehydrogenase 178 Total Protein 6.7 Albumin 3.2 Globulin 3.5 Albumin/Globulin Ratio 0.9 L Triglycerides 131 Preliminary micro results at discharge 07/06/18 09:25 Blood Culture - Preliminary Blood 07/06/18 09:43 Blood Culture - Preliminary Blood 07/05/18 19:00 Anaerobic Culture - Preliminary Toe - First 07/05/18 19:00 Anaerobic Culture - Preliminary Toe - First Medical - DS: A/P - Patient/Caregiver Discharge Instructions Activity: as per physical therapy, return to work once cleared by your PCP/ specialist Diet: Regular Diet Additional Instructions: Follow up with Ted Baker at [facility] on 07/13 or 07/16. Contact the office on Monday to set appointment. [phone] Weight bearing as tolerated with darco boot. Minimize weight bearing time on right foot. Daily wound care: Prescriptions: Docusate Sodium [Colace] 100 mg PO BID #60 cap Folic Acid 1 mg PO DAILY #30 tab Gabapentin [Neurontin] 300 mg PO TID #90 cap Hydrochlorothiazide [Oretic] 25 mg PO DAILY #30 tab Lisinopril [Zestril] 20 mg PO DAILY #30 tab Magnesium Hydroxide [Milk of Magnesia] 30 ml PO BIDP PRN #400 ml PRN Reason: Constipation Methadone [Dolophine] 5 mg PO BID #30 tab Multivit,Ther Iron,Ca,FA & Min [Multivitamin W/Minerals] 1 tab PO DAILY #30 tab Mupirocin Oint 2% [Bactroban Oint 2%] 1 dose TOPICAL TID 7 Days #1 tube NIFEdipine [Procardia Xl] 60 mg PO DAILY #60 tab.xl.24h Omeprazole [Prilosec] 20 mg PO DAILY 30 Days #30 cap Polyethylene Glycol 3350 [Miralax] 17 gm PO DAILYP PRN #30 packet PRN Reason: Constipation traZODone HCL [Desyrel] 50 mg PO HSP PRN #30 tab PRN Reason: Insomnia Other Amb Orders: Outpatient PICC Care Location: None Selected - Problem Maintenance (1) Acquired absence of great toe Status: Acute Comment: resected by Orthopedic surgeon this admission for osteomyelitis sutures out 10-14 days from resection if looks ready Qualifiers: Laterality: right Qualified Code(s): Z89.411 - Acquired absence of right great toe (2) Abscess of foot Status: Acute Comment: MRSA intermediate sensitivity to Vanco so on Dapto for 4 weeks (3) MRSA (methicillin resistant staph aureus) culture positive Status: Acute Comment: plan dapto by PICC (4) Osteomyelitis due to Staphylococcus aureus Status: Acute Comment: per Dr. Vasquez plan will treat for 4 weeks with Daptomycin via PICC line from date 07/06/18 - Follow up Plan Follow up with: Seamus Small MD [Physician] - 07/20/18 1:20 pm (Please check in 20 minutes early for your appointment. If instructed to have an early appointment, please call and rescheduled.) Disposition: Home, Self-Care Prognosis: Good Rehab Potential: Good I certify that the patient requires SNF services: No Overall status at discharge: patient is progressing back to baseline Medical - DS: Qual - VTE Deep Vein Thrombosis/Pulmonary Embolism Present on Admission: No
--- NOTE | 2018-07-10 13:44 | Surgical Pathology Report ---
HISTOLOGY SPECIMEN MICROSCOPIC DIAGNOSIS SPECIMEN A - DIGIT, RIGHT GREAT TOE, AMPUTATION: -- GANGRENOUS NECROSIS WITH ASSOCIATED UNDERLYING ACUTE OSTEOMYELITIS. -- NECROSIS EXTENDS TO THE SKIN AND SOFT TISSUE MARGINS. -- ACUTE OSTEOMYELITIS EXTENDS TO THE CUT BONE MARGIN. SPECIMEN B - BONE, RIGHT GREAT TOE, PROXIMAL PHALANX, BIOPSY: -- ACUTE OSTEOMYELITIS. SPECIMEN C - BONE, RIGHT GREAT SUBMITTED "TO PROXIMAL PHALANX", BIOPSY: -- ACUTE OSTEOMYELITIS. (DMT:christina) PROCEDURAL IMPRESSION Sepsis; arthritis; cellulitis; osteomyelitis. GROSS DESCRIPTION Specimen A: Received in formalin, designated right great toe, is a 6 cm long, 5 cm from medial to lateral and 4.3 cm from plantar to doral distal right great toe. The toe has an irregular thickened 2.2 x 1.5 cm nail plate. Distal to the nail plate is a 5.5 x 3.2 cm area of ulceration. The area of ulceration extends to the skin and soft tissue margin. The bone margin is a cut face. The margins are inked black. The specimen is bisected, decalcified and a composite cross section of the toe from distal to proximal including the margin is submitted in three cassettes as follows: A1 - distal tip, A2 - mid third and A3 - bone, skin and soft tissue margins. (DMT:adj) Specimen B: Received in formalin labeled with the patient information, are four butler-brown tissue fragments from 0.2 to 0.3 cm. They are entirely submitted following decalcification in decal stat - one cassette. Specimen C: Received in an ANOCZ container or tube, are three butler-brown tissue fragments from 0.1 to 0.2 cm. They are entirely submitted following decalcification in decal stat - one cassette. (SCB:christina) Electronically Signed by: Simon Saucedo M.D.
== END 2018-07-10 15:30 | disposition home or self-care (01) | DRG 478 ==
LOC: MEDSUR 14:10
PROVIDERS: ADMIT Orthopaedic Surgery Foot and Ankle Surgery; ATTEND Internal Medicine